=== PATIENT | female | born 1930 | race Caucasian/White ===

== ENCOUNTER 2018-02-27 16:34 | Inpatient (IN) | payer MEDICARE, OTHER ==
[2018-02-27] MEDS ORDERED: SODIUM CHLORIDE 0.9% 500 ML 500 ML IV STA (17:14)
[2018-02-27] MEDS ORDERED: MORPHINE SULFATE 4 MG/ML SYRINGE IVP STA ×2 (17:17→19:39)
[2018-02-27 17:42] LABS: Basophils % (A) 0 %; Eosinophils # (A) 0.1 k/uL (0-0.7); Eosinophils % (A) 0 %; HCT 32.9 % (34.0-46.0); HGB 10.9 gm/dL (11.4-16.0); Lymphocytes # (A) 0.7 k/uL (1.0-4.8); Lymphocytes % (A) 6 %; MCH 29.6 pg (25.0-35.0); MCV 89.9 fL (80.0-100.0); Mean Platelet Volume 6.8; Monocytes # (A) 0.4 k/uL (0-1.0); Monocytes % (A) 4 %; Neutrophils # (A) 11.1 k/uL (1.3-7.7); Neutrophils % (A) 90 %; Platelet Count 388 k/uL (150-450); RBC 3.67 m/uL (3.80-5.40); RDW 14.4 % (11.5-15.5); WBC 12.4 k/uL (3.8-10.6)
[2018-02-27 17:52] LABS: INR 0.9 (<1.2); Partial Thromboplastin Time 30.3 sec (22.0-30.0); Prothrombin Time 9.2 sec (9.0-12.0)
[2018-02-27 17:55] LABS: Albumin 3.9 g/dL (3.5-5.0); Calcium 9.8 mg/dL (8.4-10.2); Magnesium 1.8 mg/dL (1.6-2.3); Potassium 4.1 mmol/L (3.5-5.1); Total Bilirubin 0.4 mg/dL (0.2-1.3); Total Protein 6.8 g/dL (6.3-8.2)
--- NOTE | 2018-02-27 18:09 | ED ---
General Adult HPI - General Chief complaint: Fall Stated complaint: rt leg pain Time Seen by Provider: 02/27/18 16:37 Source: patient, RN notes reviewed, old records reviewed Mode of arrival: EMS Limitations: no limitations - History of Present Illness Initial comments: Patient is a 87-year-old female with multiple complaints, Patient states that she's had increased weakness over the past week, and immobile due to right leg pain. Patient states that she has been sitting in her chair and complains of swelling and redness to the right lower extremity. She reports she has pain within the right hip extending down from the back to the lower leg. Patient states that she also has had increased shortness of breath on exertion and this had difficulty performing her daily activities. Patient states that she also has worsening ascites within her abdomen. She states she does not know 7 with this could be caused from. She has been diagnosed with this bite from her PCP. Patient states that she has had no recent fevers or chills. She reports severe pain with any range of motion of her right ankle. - Related Data Home Medications Medication Instructions Recorded Confirmed Acetaminophen [Tylenol] 650 mg PO Q6H PRN 02/27/18 02/27/18 Ascorbic Acid [Vitamin C] 500 mg PO DAILY 02/27/18 02/27/18 Aspirin EC [Ecotrin Low Dose] 81 mg PO DAILY 02/27/18 02/27/18 Calcium Citrate 250 mg PO DAILY 02/27/18 02/27/18 Docusate [Colace] 100 mg PO DAILY 02/27/18 02/27/18 Felodipine [Felodipine ER] 10 mg PO DAILY 02/27/18 02/27/18 Fenofibrate Nanocrystallized 145 mg PO DAILY 02/27/18 02/27/18 [Fenofibrate] Fish Oil/Dha/Epa [Fish Oil 1,200 1 cap PO DAILY 02/27/18 02/27/18 mg Fish Oil] Indapamide [Lozol] 2.5 mg PO DAILY 02/27/18 02/27/18 Levothyroxine Sodium 100 mcg PO DAILY 02/27/18 02/27/18 Lisinopril [Zestril] 20 mg PO DAILY 02/27/18 02/27/18 Loratadine 10 mg PO DAILY 02/27/18 02/27/18 Metoprolol Tartrate [Lopressor] 200 mg PO Q12H 02/27/18 02/27/18 Vitamin B Complex 1 cap PO DAILY 02/27/18 02/27/18 Vitamin D3(Uknown Dose) 1 tab PO DAILY 02/27/18 02/27/18 hydrALAZINE HCL [Apresoline] 50 mg PO TID 02/27/18 02/27/18 metFORMIN HCL [Glucophage] 500 mg PO AC-SUPPER 02/27/18 02/27/18 rOPINIRole HCL [Requip] 0.25 mg PO HS 02/27/18 02/27/18 Allergies Allergy/AdvReac Type Severity Reaction Status Date / Time aspirin AdvReac Abdominal Verified 02/27/18 16:50 Pain codeine AdvReac Hallucinati Verified 02/27/18 16:50 ons NSAIDS (Non-Steroidal AdvReac Abdominal Verified 02/27/18 16:50 Anti-Inflamma Pain Review of Systems ROS Statement: Those systems with pertinent positive or pertinent negative responses have been documented in the HPI. ROS Other: All systems not noted in ROS Statement are negative. Past Medical History Past Medical History: Diabetes Mellitus, Hypertension, Thyroid Disorder History of Any Multi-Drug Resistant Organisms: None Reported Past Surgical History: Appendectomy, Hysterectomy, Orthopedic Surgery Past Psychological History: No Psychological Hx Reported Smoking Status: Never smoker Past Alcohol Use History: None Reported Past Drug Use History: None Reported General Exam - General Exam Comments Initial Comments: 87-year-old female. Patient appears a week. Limitations: no limitations General appearance: alert, in no apparent distress Head exam: Present: atraumatic, normocephalic, normal inspection Eye exam: Present: normal appearance, PERRL, EOMI. Absent: scleral icterus, conjunctival injection, periorbital swelling ENT exam: Present: normal exam, mucous membranes moist Neck exam: Present: normal inspection. Absent: tenderness, meningismus, lymphadenopathy Respiratory exam: Present: normal lung sounds bilaterally. Absent: respiratory distress, wheezes, rales, rhonchi, stridor Cardiovascular Exam: Present: regular rate, normal rhythm, normal heart sounds. Absent: systolic murmur, diastolic murmur, rubs, gallop, clicks GI/Abdominal exam: Present: distended, normal bowel sounds. Absent: soft, tenderness, guarding, rebound, rigid Extremities exam: Present: normal inspection, full ROM, normal capillary refill. Absent: tenderness, pedal edema, joint swelling, calf tenderness Right Hip exam: Present: tenderness (Patient is tenderness over the greater trochanter. ). Absent: normal inspection Upper Leg exam: Absent: normal inspection (Patient has significant pain with any range of motion of the leg.), full ROM Knee exam: Present: normal inspection Lower Leg exam: Present: full ROM, swelling. Absent: normal inspection, tenderness Ankle exam: Present: normal inspection, full ROM Foot/Toe exam: Present: normal inspection, full ROM (Patient has erythema. ) Neurovascular tendon exam: Present: no vascular compromise Gait: observed and normal Back exam: Present: normal inspection, full ROM Neurological exam: Present: alert, oriented X3, CN II-XII intact Psychiatric exam: Present: normal affect, normal mood Skin exam: Present: warm, dry, intact, normal color. Absent: rash Course Vital Signs 02/27/18 02/27/18 02/27/18 16:35 17:37 19:00 Temperature 98.2 F Pulse Rate 74 86 74 Respiratory 18 18 18 Rate Blood Pressure 190/79 189/76 198/84 O2 Sat by Pulse 94 L 93 L 92 L Oximetry 02/27/18 20:35 Temperature Pulse Rate 85 Respiratory 18 Rate Blood Pressure 187/76 O2 Sat by Pulse 92 L Oximetry Medical Decision Making - Medical Decision Making 87-year-old female multiple complaints and complains of right hip and leg pain. She complains of leg has been worse this week. She has been increasingly debilitated unable to perform ADLs. She's been very little mobility and only sitting in her chair. 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 Patient would not ambulate or do any range of motion of the leg. She did have some slight extremity of the right leg as well. Patient also complains of abdominal distention. We did do a chest x-ray which was negative for any acute process. EKG shows no acute changes aside. Patient's lab work was relatively unremarkable. The abdominal distention and the hip pain, We did proceed with CT for further evaluation. CT does show evidence of chronic bladder outlet obstruction and chronic left-sided hydronephrosis. Also some chronic changes with AVN with the right hip. She has significant distention of her bladder. It does start nurses to proceed with Arreaga catheter. Patient would not ambulate to and from the bathroom to proceed with urinalysis or use a bedpan. At this time with [facility] Patient for further evaluation for the also complaints including the right hip pain with AVN, weakness, inability to perform ADLs, dyspnea, chronic urinary retention. - Lab Data Result diagrams: 02/27/18 17:27 02/27/18 17:27 Lab Results 02/27/18 02/27/18 02/27/18 Range/Units 17:27 17:27 17:27 WBC 12.4 H (3.8-10.6) k/uL RBC 3.67 L (3.80-5.40) m/uL Hgb 10.9 L (11.4-16.0) gm/dL Hct 32.9 L (34.0-46.0) % MCV 89.9 (80.0-100.0) fL MCH 29.6 (25.0-35.0) pg MCHC 33.0 (31.0-37.0) g/dL RDW 14.4 (11.5-15.5) % Plt Count 388 (150-450) k/uL Neutrophils % 90 % Lymphocytes % 6 % Monocytes % 4 % Eosinophils % 0 % Basophils % 0 % Neutrophils # 11.1 H (1.3-7.7) k/uL Lymphocytes # 0.7 L (1.0-4.8) k/uL Monocytes # 0.4 (0-1.0) k/uL Eosinophils # 0.1 (0-0.7) k/uL Basophils # 0.0 (0-0.2) k/uL PT (9.0-12.0) sec INR (<1.2) APTT (22.0-30.0) sec Sodium 131 L (137-145) mmol/L Potassium 4.1 (3.5-5.1) mmol/L Chloride 93 L (98-107) mmol/L Carbon Dioxide 28 (22-30) mmol/L Anion Gap 10 mmol/L BUN 23 H (7-17) mg/dL Creatinine 0.81 (0.52-1.04) mg/dL Est GFR (CKD-EPI)AfAm 77 (>60 ml/min/1.73 sqM) Est GFR (CKD-EPI)NonAf 67 (>60 ml/min/1.73 sqM) Glucose 140 H (74-99) mg/dL Calcium 9.8 (8.4-10.2) mg/dL Magnesium 1.8 (1.6-2.3) mg/dL Total Bilirubin 0.4 (0.2-1.3) mg/dL AST 20 (14-36) U/L ALT 19 (9-52) U/L Alkaline Phosphatase 46 (38-126) U/L Total Creatine Kinase 57 (30-135) U/L CK-MB (CK-2) 1.1 (0.0-2.4) ng/mL CK-MB (CK-2) Rel Index 1.9 Troponin I <0.012 (0.000-0.034) ng/mL Total Protein 6.8 (6.3-8.2) g/dL Albumin 3.9 (3.5-5.0) g/dL 02/27/18 Range/Units 17:27 WBC (3.8-10.6) k/uL RBC (3.80-5.40) m/uL Hgb (11.4-16.0) gm/dL Hct (34.0-46.0) % MCV (80.0-100.0) fL MCH (25.0-35.0) pg MCHC (31.0-37.0) g/dL RDW (11.5-15.5) % Plt Count (150-450) k/uL Neutrophils % % Lymphocytes % % Monocytes % % Eosinophils % % Basophils % % Neutrophils # (1.3-7.7) k/uL Lymphocytes # (1.0-4.8) k/uL Monocytes # (0-1.0) k/uL Eosinophils # (0-0.7) k/uL Basophils # (0-0.2) k/uL PT 9.2 (9.0-12.0) sec INR 0.9 (<1.2) APTT 30.3 H (22.0-30.0) sec Sodium (137-145) mmol/L Potassium (3.5-5.1) mmol/L Chloride (98-107) mmol/L Carbon Dioxide (22-30) mmol/L Anion Gap mmol/L BUN (7-17) mg/dL Creatinine (0.52-1.04) mg/dL Est GFR (CKD-EPI)AfAm (>60 ml/min/1.73 sqM) Est GFR (CKD-EPI)NonAf (>60 ml/min/1.73 sqM) Glucose (74-99) mg/dL Calcium (8.4-10.2) mg/dL Magnesium (1.6-2.3) mg/dL Total Bilirubin (0.2-1.3) mg/dL AST (14-36) U/L ALT (9-52) U/L Alkaline Phosphatase (38-126) U/L Total Creatine Kinase (30-135) U/L CK-MB (CK-2) (0.0-2.4) ng/mL CK-MB (CK-2) Rel Index Troponin I (0.000-0.034) ng/mL Total Protein (6.3-8.2) g/dL Albumin (3.5-5.0) g/dL 02/27/18 18:09 EKG performed at 1731 shows normal sinus rhythm normal ECG. Ventricular rate of 86 bpm. Intervals 178 ms. QRS ration 78 ms. QT QTc is 364/435 ms. 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 No acute fractures seen. Possible lytic lesion in the process of all right femur. Ultrasound was limited as Patient is unable to lay on the right side of her body or bend the right knee for the right popliteal vein assessment 2 to the right leg pain. Rest of vitals or imaging were negative for DVT. Chest x-ray is a for any acute cardiopulmonary disease. There is left-sided hydronephrosis and hydroureter with decreased left renal function. Consistent with chronic obstruction. Large bladder cystocele. Dilated bladder consistent with chronic bladder outlet obstruction. No obstructing calculus noted. Atherosclerotic vascular disease noted. 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 Disposition Clinical Impression: AVN of femur, Inability to perform activities of daily living, Weakness, Chronic retention of urine, Abdominal distension Disposition: ADMITTED IP TO THIS HOSP Condition: Stable Is patient prescribed a controlled substance at d/c from ED?: No Referrals: Ruddy Suh MD [Primary Care Provider] - 1-2 days Time of Disposition: 21:29
[2018-02-27 18:12] LABS: Creatine Kinase 57 U/L (30-135)
[2018-02-27 18:25] LABS: Creatine Kinase MB 1.1 ng/mL (0.0-2.4); Troponin I <0.012 ng/mL (0.000-0.034)
--- NOTE | 2018-02-27 18:46 | US ---
EXAMINATION TYPE: US venous doppler duplex LE RT DATE OF EXAM: 02/27/2018 6:20 PM COMPARISON: NONE CLINICAL HISTORY: Pain. Bilateral lower leg skin redness with lower right leg swelling and entire rig ht leg pain x couple weeks; arthritis per patient SIDE PERFORMED: Right TECHNIQUE: The lower extremity deep venous system is examined utilizing real time linear array sonog judith with graded compression, Doppler sonography and color-flow sonography. VESSELS IMAGED: Common Femoral Vein Deep Femoral Vein Greater Saphenous Vein * Femoral Vein PTV Distally US exam is technically limited as patient is unable to lay on right body side or bend right knee for Right Popliteal Vein assessment due to severe right leg pain. US technologist attempted to bend knee and patient refused full maneuver. Right Leg: Negative for DVT IMPRESSION: Negative exam. No evidence of deep venous thrombosis in the right leg.
--- NOTE | 2018-02-27 19:01 | XR ---
EXAMINATION TYPE: XR chest 2V DATE OF EXAM: 02/27/2018 COMPARISON: NONE HISTORY: Difficulty breathing TECHNIQUE: Frontal and lateral views of the chest are obtained. FINDINGS: There is no heart failure nor confluent pneumonic infiltrate. Heart appears slightly enlar ged. Costophrenic angles are clear. Bony thorax appears intact. IMPRESSION: No active cardiopulmonary disease.
--- NOTE | 2018-02-27 19:03 | XR ---
EXAMINATION TYPE: XR Hip RT and AP Pelvis DATE OF EXAM: 02/27/2018 COMPARISON: NONE HISTORY: Chronic hip pain TECHNIQUE: A single AP view of the pelvis is obtained. Two views of the right hip are obtained. FINDINGS: Pelvic ring is intact. There is severe narrowing of the right hip joint space with some fla ttening of the articular surface. Left proximal small femur and hip joint are intact. Sacroiliac join ts appear intact. I see no acute fracture. There is possible 2 cm lytic area in the proximal shaft of the right femur. 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 No acute fracture seen. Possible lytic lesion in the proximal right femur.
[2018-02-27] MEDS ORDERED: LABETALOL 5 MG/ML VIAL MDV IVP STA (19:39)
--- NOTE | 2018-02-27 21:01 | CT ---
EXAMINATION TYPE: CT abdomen pelvis w con DATE OF EXAM: 02/27/2018 COMPARISON: None HISTORY: Right sided hip pain and abdominal distention. CT DLP: 1106.6 mGycm Automated exposure control for dose reduction was used. TECHNIQUE: Helical acquisition of images was performed from the lung bases through the pelvis. CONTRAST: Performed without Oral Contrast and with IV Contrast, patient injected with 100ml mL of Isovue 300. FINDINGS: There is some patchy linear density at the lung bases. There is no pleural effusion. Heart is enlarged. Liver spleen appear normal. Bile ducts are not dilated. There is no evidence of pa ncreatic mass. Stomach appears normal. There is no adrenal mass. Kidneys have normal size. There is large left renal pelvis. There is left-s ided hydroureter. I see no ureteral calculus. There is decreased contrast excretion in the left renal collecting system compared to the right. There is no retroperitoneal adenopathy. There is no mesenteric adenopathy or edema. There is enlargement of the urinary bladder with cystocel e. Bladder measures 21 cm in length. There is 6 cm dissent of the floor of the urinary bladder. I see no intestinal wall thickening. There are no dilated loops. There is no evidence of a bowel obst ruction. Appendix appears normal. There is no ascites. There is no sign of free air. There is no ingu inal hernia. There is small umbilical hernia that contains fat. Lumbar spine appears intact. I see no bony destructive process. There is advanced osteoarthritis in the right hip joint with features of c hronic avascular necrosis of the right femoral head and extensive subchondral cystic change on both s ides of the right hip joint. IMPRESSION: THERE IS LEFT-SIDED HYDRONEPHROSIS AND HYDROURETER WITH DECREASED LEFT RENAL FUNCTION. THIS IS CONSIS TENT WITH CHRONIC OBSTRUCTION. THERE IS LARGE BLADDER CYSTOCELE. DILATED BLADDER CONSISTENT WITH EDGE BONDER BREE BLADDER OUTLET OBSTRUCTION. NO OBSTRUCTING CALCULUS SEEN. ATHEROSCLEROTIC VASCULAR DISEASE. Bony changes involving right hip as above.
[2018-02-27] MEDS ORDERED: IBUPROFEN 400 MG TAB PO PRN (21:29)
[2018-02-27] MEDS ORDERED: NALOXONE 0.4 MG/ML 1 ML VIAL IV PRN (21:29)
[2018-02-27] MEDS ORDERED: ONDANSETRON 4 MG/2 ML VIAL IVP PRN (21:29)
[2018-02-27] MEDS ORDERED: Acetaminophen-Codeine 300-30mg TAB PO PRN (21:29)
[2018-02-27] MEDS: SODIUM CHLORIDE 0.9% 1,000 ML IV SCH (21:40)
[2018-02-27 22:18] LABS: Appearance,Urine Cloudy (Clear); Bilirubin,Urine Negative (Negative); Blood,Urine Negative (Negative); Budding Yeast,Urine Few /hpf; Color,Urine Yellow; Glucose,Urine (UA) Negative (Negative); Ketones,Urine Negative (Negative); Leukocyte Esterase,Urine Negative (Negative); Mucus,Urine Rare /hpf; Nitrite,Urine Negative (Negative); PH, Urine 5.5 (5.0-8.0); Protein,Urine Trace (Negative); RBC,Urine 2 /hpf (0-5); Specific Gravity,Urine 1.014 (1.001-1.035)
[2018-02-28 00:58] VITALS: BMI 29.9
[2018-02-28] MEDS: hydrALAZINE HCL 50 MG TAB PO SCH ×4 (01:45→20:59)
[2018-02-28] MEDS: MORPHINE SULFATE 4 MG/ML SYRINGE IV PRN ×2 (01:46→08:39)
[2018-02-28] MEDS: ENALAPRILAT 1.25 MG/ML 1 ML VIAL IVP PRN (03:08)
[2018-02-28 08:24] LABS: Glucose,Whole Blood 164 mg/dL (75-99)
[2018-02-28] MEDS: SODIUM CHLORIDE 0.9% 1,000 ML IV SCH ×2 (08:27→16:26)
[2018-02-28] MEDS: PANTOPRAZOLE 40 MG/10 ML VIAL IV SCH (08:39)
--- NOTE | 2018-02-28 09:39 | P.CNOR ---
History of Present Illness - [facility] Consult date: 02/28/18 Consult reason: joint pain History of present illness: Patient is an 87-year-old female who was admitted to [facility] yesterday with multiple medical comorbidities. Patient was first complaining of significant right hip and leg pain. She also complains of weakness and inability to ambulate. Upon arrival to the emergency room at [facility], imaging and lab tests were done. Labs demonstrated issues with her kidneys, further testing demonstrated a hydronephrosis and a large ascites. X-rays also demonstrated significant arthritis/AVN of the left hip. Patient was admitted under internal medicine, orthopedic team was consulted. Patient was evaluated today at bedside, she's resting comfortably. Patient is a very poor historian with how long that her hip symptoms have been present. She does deny any recent trauma, this including falls. She does live alone, she states that she has family around to help her. She states the hip is bothering her for years. She's had no orthopedic surgical intervention. She denies any other extremity problems, this including left lower and bilateral upper extremities. She denies any new onset cervical, thoracic or lumbar pain. She admits to discomfort in the right hip region with movement. She states that she does use a walker with ambulation. She states that she does have days where the hip really bothers her, and other days where it's not as bad. She states over the last week the pain is worsened. Review of Systems Constitutional: Reports as per [facility] Past Medical History Past Medical History: Diabetes Mellitus, Hypertension, Thyroid Disorder History of Any Multi-Drug Resistant Organisms: None Reported Past Surgical History: Appendectomy, Hysterectomy, Orthopedic Surgery Past Psychological History: No Psychological Hx Reported Smoking Status: Never smoker Past Alcohol Use History: None Reported Past Drug Use History: None Reported - Past Family History Mother Additional Family Medical History / Comment(s): at 34 of unknown heart problems Father Additional Family Medical History / Comment(s): at 85 of heart disease, history of strokes Medications and Allergies Home Medications Medication Instructions Recorded Confirmed Type Acetaminophen [Tylenol] 650 mg PO Q6H PRN 02/27/18 02/27/18 History Ascorbic Acid [Vitamin C] 500 mg PO DAILY 02/27/18 02/27/18 History Aspirin EC [Ecotrin Low Dose] 81 mg PO DAILY 02/27/18 02/27/18 History Calcium Citrate 250 mg PO DAILY 02/27/18 02/27/18 History Docusate [Colace] 100 mg PO DAILY 02/27/18 02/27/18 History Felodipine [Felodipine ER] 10 mg PO DAILY 02/27/18 02/27/18 History Fenofibrate Nanocrystallized 145 mg PO DAILY 02/27/18 02/27/18 History [Fenofibrate] Fish Oil/Dha/Epa [Fish Oil 1,200 1 cap PO DAILY 02/27/18 02/27/18 History mg Fish Oil] Indapamide [Lozol] 2.5 mg PO DAILY 02/27/18 02/27/18 History Levothyroxine Sodium 100 mcg PO DAILY 02/27/18 02/27/18 History Lisinopril [Zestril] 20 mg PO DAILY 02/27/18 02/27/18 History Loratadine 10 mg PO DAILY 02/27/18 02/27/18 History Metoprolol Tartrate [Lopressor] 200 mg PO Q12H 02/27/18 02/27/18 History Vitamin B Complex 1 cap PO DAILY 02/27/18 02/27/18 History Vitamin D3(Uknown Dose) 1 tab PO DAILY 02/27/18 02/27/18 History hydrALAZINE HCL [Apresoline] 50 mg PO TID 02/27/18 02/27/18 History metFORMIN HCL [Glucophage] 500 mg PO AC-SUPPER 02/27/18 02/27/18 History rOPINIRole HCL [Requip] 0.25 mg PO HS 02/27/18 02/27/18 History Allergies Allergy/AdvReac Type Severity Reaction Status Date / Time aspirin AdvReac Abdominal Verified 02/27/18 16:50 Pain codeine AdvReac Hallucinati Verified 02/27/18 16:50 ons NSAIDS (Non-Steroidal AdvReac Abdominal Verified 02/27/18 16:50 Anti-Inflamma Pain Physical Examination Right lower extremity: No obvious open lesions or sores present throughout the extremity No significant areas of ecchymosis or soft tissue swelling Patient is unable to straight leg raise at this time, there is pain in the groin and right hip region with logroll maneuver She is nontender with palpation surrounding the knee, no obvious effusion appreciated Plantar flexion, dorsiflexion, EHL, FHL are intact Sensation to light touch that extremity is intact, dorsal pedis pulses 2+ Results - Labs Labs: Abnormal Lab Results - Last 24 Hours (Table) 02/27/18 02/27/18 02/27/18 Range/Units 17:27 17:27 17:27 WBC 12.4 H (3.8-10.6) k/uL RBC 3.67 L (3.80-5.40) m/uL Hgb 10.9 L (11.4-16.0) gm/dL Hct 32.9 L (34.0-46.0) % Neutrophils # 11.1 H (1.3-7.7) k/uL Lymphocytes # 0.7 L (1.0-4.8) k/uL APTT 30.3 H (22.0-30.0) sec Sodium 131 L (137-145) mmol/L Chloride 93 L (98-107) mmol/L BUN 23 H (7-17) mg/dL Glucose 140 H (74-99) mg/dL POC Glucose (mg/dL) (75-99) mg/dL Urine Appearance (Clear) Urine Protein (Negative) Urine Mucus (None) /hpf Urine Yeast (Budding) (None) /hpf 02/27/18 02/28/18 Range/Units 21:57 08:22 WBC (3.8-10.6) k/uL RBC (3.80-5.40) m/uL Hgb (11.4-16.0) gm/dL Hct (34.0-46.0) % Neutrophils # (1.3-7.7) k/uL Lymphocytes # (1.0-4.8) k/uL APTT (22.0-30.0) sec Sodium (137-145) mmol/L Chloride (98-107) mmol/L BUN (7-17) mg/dL Glucose (74-99) mg/dL POC Glucose (mg/dL) 164 H (75-99) mg/dL Urine Appearance Cloudy H (Clear) Urine Protein Trace H (Negative) Urine Mucus Rare H (None) /hpf Urine Yeast (Budding) Few H (None) /hpf H & H 02/27/18 Range/Units 17:27 Hgb 10.9 L (11.4-16.0) gm/dL Hct 32.9 L (34.0-46.0) % Coagulation 02/27/18 Range/Units 17: INR 0.9 (<1.2) Result Diagrams: 02/27/18 17:27 02/27/18 17:27 - Diagnostic results Hip x-ray: report reviewed, image reviewed Assessment and Plan Plan: Imaging: X-rays of the right hip and AP pelvis were obtained. Images demonstrate severe arthritis of the right hip. There is evidence of avascular necrosis of the right femoral head. Assessment: 1. Right hip osteoarthritis 2. Right femoral head avascular necrosis 3. Multiple medical comorbidities Plan: I was able to discuss the case, including the physical exam findings and imaging studies with Dr. Mims. At this point, no acute surgical intervention. There are no fractures that I'm able to visualize. Due to the port patient's multiple medical comorbidities, she is a very poor candidate for surgery at this time. When discussing the current condition with the patient, describing that she will be in constant pain without surgical intervention, she is reluctant to have any surgery. Pain control, a utilize oral medication, IV pain medication for breakthrough GI and DVT prophylaxis per medical recommendations Other medical typist recommendations for multiple medical comorbidities Further recommendations to follow Time with Patient: Less than 30
[2018-02-28 11:53] LABS: Glucose,Whole Blood 167 mg/dL (75-99)
[2018-02-28] MEDS: METOPROLOL TARTRATE 50 MG TAB PO SCH ×2 (13:39→20:58)
--- NOTE | 2018-02-28 15:28 | P.CONS ---
History of Present Illness - Reason for Consult Consult date: 02/28/18 suspicious silvana lesion Requesting physician: Kota Little - Chief Complaint right leg and side pain - History of Present Illness Mrs. Sofia is a very pleasant 87 year old female who has had progressive right hip pain ovr the last year. The month though is has been so severe that it is impacting her ADLs. Pt denies any other notable physical changes, she denies a personal history of malignancy, no recent illnesses, injuries, falls, appetite is fair, no nausea, vomiting, cough, changes in bowel or bladder habits. She has had mammograms, denies colonoscopy or EGD-and does not want those tests. She is in good overall health other then her leg. Review of Systems 14 point ROS as stated in HPI Past Medical History Past Medical History: Diabetes Mellitus, Hypertension, Thyroid Disorder History of Any Multi-Drug Resistant Organisms: None Reported Past Surgical History: Appendectomy, Hysterectomy, Orthopedic Surgery Past Psychological History: No Psychological Hx Reported Smoking Status: Never smoker Past Alcohol Use History: None Reported Past Drug Use History: None Reported - Past Family History Mother Additional Family Medical History / Comment(s): at 34 of unknown heart problems Father Additional Family Medical History / Comment(s): at 85 of heart disease, history of strokes Medications and Allergies Home Medications Medication Instructions Recorded Confirmed Type Acetaminophen [Tylenol] 650 mg PO Q6H PRN 02/27/18 02/27/18 History Ascorbic Acid [Vitamin C] 500 mg PO DAILY 02/27/18 02/27/18 History Aspirin EC [Ecotrin Low Dose] 81 mg PO DAILY 02/27/18 02/27/18 History Calcium Citrate 250 mg PO DAILY 02/27/18 02/27/18 History Docusate [Colace] 100 mg PO DAILY 02/27/18 02/27/18 History Felodipine [Felodipine ER] 10 mg PO DAILY 02/27/18 02/27/18 History Fenofibrate Nanocrystallized 145 mg PO DAILY 02/27/18 02/27/18 History [Fenofibrate] Fish Oil/Dha/Epa [Fish Oil 1,200 1 cap PO DAILY 02/27/18 02/27/18 History mg Fish Oil] Indapamide [Lozol] 2.5 mg PO DAILY 02/27/18 02/27/18 History Levothyroxine Sodium 100 mcg PO DAILY 02/27/18 02/27/18 History Lisinopril [Zestril] 20 mg PO DAILY 02/27/18 02/27/18 History Loratadine 10 mg PO DAILY 02/27/18 02/27/18 History Metoprolol Tartrate [Lopressor] 200 mg PO Q12H 02/27/18 02/27/18 History Vitamin B Complex 1 cap PO DAILY 02/27/18 02/27/18 History Vitamin D3(Uknown Dose) 1 tab PO DAILY 02/27/18 02/27/18 History hydrALAZINE HCL [Apresoline] 50 mg PO TID 02/27/18 02/27/18 History metFORMIN HCL [Glucophage] 500 mg PO AC-SUPPER 02/27/18 02/27/18 History rOPINIRole HCL [Requip] 0.25 mg PO HS 02/27/18 02/27/18 History Allergies Allergy/AdvReac Type Severity Reaction Status Date / Time aspirin AdvReac Abdominal Verified 02/27/18 16:50 Pain codeine AdvReac Hallucinati Verified 02/27/18 16:50 ons NSAIDS (Non-Steroidal AdvReac Abdominal Verified 02/27/18 16:50 Anti-Inflamma Pain Physical Exam Vitals: Vital Signs Temp Pulse Pulse Resp BP BP Pulse Ox 02/28/18 14:50 98.8 F 73 15 177/72 93 L 02/28/18 13:40 169/65 02/28/18 10:24 83 175/62 02/28/18 08:35 97.4 F L 85 16 182/69 96 02/28/18 05:24 99.0 F 72 16 171/63 97 02/28/18 04:22 99.3 F 87 16 177/64 97 02/28/18 02:59 99.5 F 92 16 173/69 92 L 02/28/18 00:29 99.3 F 88 14 179/69 93 L 02/27/18 23:28 99.3 F 84 20 168/72 92 L 02/27/18 22:42 83 18 173/72 02/27/18 22:00 100.2 F H 02/27/18 20:35 85 18 187/76 92 L 02/27/18 19:00 74 18 198/84 92 L 02/27/18 17:37 86 18 189/76 93 L 02/27/18 16:35 98.2 F 74 18 190/79 94 L Intake and Output 02/28/18 02/28/18 02/28/18 06:59 14:59 22:59 Intake Total 480 120 Output Total 1500 1900 Balance -1020 -1780 Intake: Oral 480 120 Output: Urine 1500 1900 Other: Weight 69.4 kg - Constitutional General appearance: cooperative, no acute distress, obese - EENT Eyes: anicteric sclerae, EOMI, PERRLA, normal appearance ENT: hearing grossly normal, normal oropharynx - Neck Neck: no lymphadenopathy - Respiratory Respiratory: bilateral: CTA - Cardiovascular Rhythm: regular Heart sounds: normal: S1, S2 Abnormal Heart Sounds: no systolic murmur, no diastolic murmur, no rub, no S3 Gallop, no S4 Gallop, no click, no other leg Peripheral Edema: right: 2+ (tender, warm), left: Trace - Gastrointestinal firmness in the RLQ, not a definable mass General gastrointestinal: no absent bowel sounds, no decreased bowel sounds, no distended, no hepatomegaly, no hyperactive bowel sounds, normal bowel sounds, no organomegaly, no rigid, no scaphoid, soft, no splenomegaly, no tenderness, no umbilical hernia, no ventral hernia - Integumentary Integumentary: pale - Neurologic Neurologic: CNII-XII intact - Musculoskeletal right leg weak due to pain Musculoskeletal: strength equal bilaterally - Psychiatric Psychiatric: A&O x's 3, appropriate affect, intact judgment & insight Results CBC & Chem 7: 02/27/18 17:27 02/27/18 17:27 Labs: Abnormal Lab Results - Last 24 Hours (Table) 02/27/18 02/27/18 02/27/18 Range/Units 17:27 17:27 17:27 WBC 12.4 H (3.8-10.6) k/uL RBC 3.67 L (3.80-5.40) m/uL Hgb 10.9 L (11.4-16.0) gm/dL Hct 32.9 L (34.0-46.0) % Neutrophils # 11.1 H (1.3-7.7) k/uL Lymphocytes # 0.7 L (1.0-4.8) k/uL APTT 30.3 H (22.0-30.0) sec Sodium 131 L (137-145) mmol/L Chloride 93 L (98-107) mmol/L BUN 23 H (7-17) mg/dL Glucose 140 H (74-99) mg/dL POC Glucose (mg/dL) (75-99) mg/dL Urine Appearance (Clear) Urine Protein (Negative) Urine Mucus (None) /hpf Urine Yeast (Budding) (None) /hpf 02/27/18 02/28/18 02/28/18 Range/Units 21:57 08:22 11:51 WBC (3.8-10.6) k/uL RBC (3.80-5.40) m/uL Hgb (11.4-16.0) gm/dL Hct (34.0-46.0) % Neutrophils # (1.3-7.7) k/uL Lymphocytes # (1.0-4.8) k/uL APTT (22.0-30.0) sec Sodium (137-145) mmol/L Chloride (98-107) mmol/L BUN (7-17) mg/dL Glucose (74-99) mg/dL POC Glucose (mg/dL) 164 H 167 H (75-99) mg/dL Urine Appearance Cloudy H (Clear) Urine Protein Trace H (Negative) Urine Mucus Rare H (None) /hpf Urine Yeast (Budding) Few H (None) /hpf Comments: hip/pelvis xray report reviewed CT scan - abdomen: report reviewed CT scan - pelvis: report reviewed Venous US: report reviewed Assessment and Plan (1) Lytic bone lesion of right femur Narrative/Plan: Case discussed briefly with Orthopedics. MRI has been ordered for further evaluation of the right femur. Will await those results and plan of care per Orthopedics. CT AP report reviewed, no suspicious masses or adenopathy reported. Labs reviewed with no significant abnormalities. We will follow up with pt work up. Current Visit: Yes Status: Acute Priority: High Code(s): M89.9 - DISORDER OF BONE, UNSPECIFIED SNOMED Code(s): 45316090
[2018-02-28 16:57] LABS: Glucose,Whole Blood 157 mg/dL (75-99)
[2018-02-28] MEDS ORDERED: metFORMIN 500 MG TAB PO SCH (17:30)
[2018-02-28] MEDS: INSULIN ASPART 100 UNIT/ML 1 ML 10 ML VIAL SQ SCH ×2 (18:12→20:58)
--- NOTE | 2018-02-28 18:59 | HP ---
HISTORY AND PHYSICAL CHIEF COMPLAINT: Weakness, right hip pain. HISTORY OF PRESENT ILLNESS: This 87-year-old woman with a past medical history of multiple medical problems including history of diabetes, hypertension, hypothyroidism, appendectomy, being for DrMireya in the outpatient setting, was noted to have generalized weakness and tiredness. Patient apparently complains of right hip pain also. The patient had been unable to ambulate also. 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 Orthopedics has see and evaluated. Patient also had suspicious lytic lesion on the right femur also, MRI has been ordered. Currently the patient is stuporous and unable to give history. Most of the history is taken from my discussion with the staff and review of of the chart. PAST MEDICAL HISTORY: Diabetes, hypertension, hypothyroid, appendectomy, hysterectomy. MEDICATIONS: Prior to admission include, home medications are: 1. Requip 0.25 mg at bedtime. 2. Glucophage 500 mg with supper. 3. Apresoline 50 mg t.i.d. 4. Vitamin D3 one tablet p.o. daily. 5. Lopressor 200 mg p.o. b.i.d. 6. Loratadine 10 mg. 7. Zestril 20 mg p.o. daily. 8. Levothyroxine 100 mcg p.o. daily. 9. Lozol 2.5 mg daily. 10.Fish oil 1 p.o. daily. 11.Fenofibrate 145 mg daily. 12.Felodipine ER 10 mg p.o. daily. 13.Colace 100 mg p.o. daily. 14.Calcium is 250 mg p.o. daily. 15.Ecotrin 81 mg. 16.Vitamin C 500 mg p.o. daily. 17.Tylenol 650 every 6 h p.r.n. ALLERGIES: ASPIRIN including NSAIDs. FAMILY HISTORY: History of heart problems in the family. SOCIAL HISTORY: No history of smoking. No history of alcohol intake. REVIEW OF SYSTEMS: Could not be taken because of the change in mental status. PHYSICAL EXAM: The patient is stuporous. Pulse 73, blood pressure 140/72, respirations 15, temperature 98.8, pulse ox 98% on 2 L. HEENT: Conjunctivae normal. Oral mucosa moist. NECK: No jugular venous distention. No lymph node enlargement. CARDIOVASCULAR: S1 and S2 muffled. LUNGS: Breath sounds diminished in the bases. A few scattered rhonchi and crackles. ABDOMEN: Soft, nontender. No mass palpable. LEGS: Movement of the right leg is painful. NERVOUS SYSTEM: Higher functions as mentioned earlier. Mild diffuse weakness. LYMPHATICS: No lymph nodes palpable in the neck, axillae or groin. SKIN: No rashes. LAB STUDIES: WBC 12, hemoglobin 10.9, sodium 131. UA noted. The abdominal and pelvis CT scan showed left-sided hydronephrosis, hydroureter, decreased left renal function, large bladder cystocele. Other labs noted. ASSESSMENT: 1. 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 2. Right femur lytic lesions. 3. Gait dysfunction. 4. Left-sided hydronephrosis, hydroureter, with chronic obstruction with possibly large bladder cystocele. 5. Diabetes mellitus type 2. 6. Hypertension. 7. Hypothyroidism. 8. Dementia. 9. Appendectomy. 10.Hysterectomy. 11.Increased WBC. 12.Hyponatremia. 13.NO CODE, NO CPR, NO VENT. RECOMMENDATIONS: In this 87-year-old woman who presented with multiple medical issues, we will monitor the patient closely, continue the current management, symptomatic treatment and home medications. Orthopedic Surgery has seen the patient. I would also recommend Urology evaluation also. Prognosis guarded because of multiple complex medical issues. Further recommendations to follow. See orders for further details. DVT prophylaxis. Total time taken is greater than 35 minutes. JEFFERY / MAYITON: [id number] / MTDD
[2018-02-28 20:31] LABS: Glucose,Whole Blood 164 mg/dL (75-99)
[2018-02-28] MEDS: HEPARIN SODIUM,PORCINE 5,000 UNIT/ML 1 ML VIAL SQ SCH (20:57)
[2018-03-01] MEDS: ENALAPRILAT 1.25 MG/ML 1 ML VIAL IVP PRN (01:56)
[2018-03-01] MEDS: MORPHINE SULFATE 4 MG/ML SYRINGE IV PRN ×2 (02:13→15:46)
[2018-03-01] MEDS: SODIUM CHLORIDE 0.9% 1,000 ML IV SCH ×2 (03:59→17:39)
[2018-03-01] MEDS: LEVOTHYROXINE 100 MCG TAB PO SCH (05:31)
[2018-03-01] MEDS: amLODIPine 10 MG TAB PO SCH (05:56)
[2018-03-01 07:31] LABS: Glucose,Whole Blood 115 mg/dL (75-99)
[2018-03-01] MEDS: INSULIN ASPART 100 UNIT/ML 1 ML 10 ML VIAL SQ SCH ×4 (07:41→22:11)
[2018-03-01 07:56] LABS: Basophils % (A) 0 %; Eosinophils # (A) 0.1 k/uL (0-0.7); Eosinophils % (A) 1 %; HCT 31.9 % (34.0-46.0); HGB 9.9 gm/dL (11.4-16.0); Lymphocytes # (A) 0.8 k/uL (1.0-4.8); Lymphocytes % (A) 11 %; MCH 28.4 pg (25.0-35.0); MCHC 30.9 g/dL (31.0-37.0); MCV 91.7 fL (80.0-100.0); Mean Platelet Volume 6.9; Monocytes # (A) 0.4 k/uL (0-1.0); Monocytes % (A) 6 %; Neutrophils # (A) 5.5 k/uL (1.3-7.7); Neutrophils % (A) 80 %; Platelet Count 382 k/uL (150-450); RBC 3.48 m/uL (3.80-5.40); RDW 14.2 % (11.5-15.5); WBC 6.8 k/uL (3.8-10.6)
[2018-03-01] MEDS ORDERED: LORazepam 2 MG/ML INJ IV ONE ×2 (08:00→09:00)
[2018-03-01 08:09] LABS: Anion Gap 10 mmol/L; Blood Urea Nitrogen 13 mg/dL (7-17); Calcium 8.6 mg/dL (8.4-10.2); Carbon Dioxide 25 mmol/L (22-30); Chloride 98 mmol/L (98-107); Glucose 101 mg/dL (74-99); Potassium 3.5 mmol/L (3.5-5.1); Sodium 133 mmol/L (137-145)
[2018-03-01] MEDS ORDERED: NON-FORMULARY DRUG (Fish Oil/Dha/Epa [Fish Oil 1,200 Mg Fish Oil] 1 CAP) PO SCH (09:00)
[2018-03-01] MEDS ORDERED: NON-FORMULARY DRUG (Vitamin B Complex [Vitamin B Complex] 1 CAP) PO SCH (09:00)
[2018-03-01] MEDS: METOPROLOL TARTRATE 50 MG TAB PO SCH ×2 (09:05→22:10)
[2018-03-01] MEDS: FENOFIBRATE 160 MG TAB PO SCH (09:06)
[2018-03-01] MEDS: HEPARIN SODIUM,PORCINE 5,000 UNIT/ML 1 ML VIAL SQ SCH ×2 (09:06→22:10)
[2018-03-01] MEDS: CALCIUM CARBONATE 500 MG CHEWABLE PO SCH ×2 (09:06→10:40)
[2018-03-01] MEDS: LORATADINE 10 MG TAB PO SCH (09:06)
[2018-03-01] MEDS: hydrALAZINE HCL 50 MG TAB PO SCH ×3 (09:06→22:11)
[2018-03-01] MEDS: PANTOPRAZOLE 40 MG/10 ML VIAL IV SCH (09:06)
[2018-03-01] MEDS: LISINOPRIL 20 MG TAB PO SCH (09:06)
[2018-03-01] MEDS: DOCUSATE 100 MG CAP PO SCH (09:06)
[2018-03-01] MEDS: CHOLECALCIFEROL 400 UNIT TAB PO SCH (09:08)
[2018-03-01 12:15] LABS: Glucose,Whole Blood 125 mg/dL (75-99)
--- NOTE | 2018-03-01 12:37 | P.PN ---
Progress Note - Text Progress Note Date: 03/01/18 Patient was unable to undergo MRI of the right hip. Patient has stated that she does not want any surgery involving the right hip. At this time it is indeterminate whether or not there are metastatic lesions involving the right femur. On orthopedic standpoint, if the MRI did demonstrate metastatic lesions in the bone, we would consider prophylactic nailing for stabilization. At this time, no orthopedic surgical intervention indicated. We'll be available for any further questions regarding this patient.
[2018-03-01] MEDS ORDERED: cloNIDine HCL 0.1 MG TAB PO PRN (14:35)
--- NOTE | 2018-03-01 15:12 | PN ---
PROGRESS NOTE DATE OF SERVICE: 03/01/2018 This is an 87-year-old woman admitted with right hip pain and possible avascular necrosis, also left hydronephrosis. The patient also had enlarged bladder cystocele. The patient will be closely monitored at this time. The Hematology Oncology also following the patient closely. MRI is pending at this time. The patient unable to do MRI today because of discomfort. REVIEW OF SYSTEMS: CARDIOVASCULAR: No angina. RESPIRATORY: As mentioned earlier. GI: As mentioned earlier. : No dysuria or retention. PHYSICAL EXAM: Alert and oriented x2. Pulse 71, blood pressure 101/71, respiration 16, temperature 98.2, pulse ox 97% on 2 L. HEENT: Conjunctivae normal. Oral mucosa moist. Neck is no jugular venous distention. No lymph node enlargement. CARDIOVASCULAR SYSTEM: S1, S2. No angina. RESPIRATION: Breath sounds diminished at the bases, no rhonchi, no crackles. Abdomen is soft, nontender. LEGS: No edema, no swelling. NERVOUS SYSTEM: No focal deficits. ASSESSMENT: 1. 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 2. Right femoral lytic lesion. 3. Gait dysfunction. 4. Left-sided hydronephrosis, hydroureter with chronic obstruction with possible larger bladder cystocele. 5. Diabetes mellitus type 2. 6. Hypertension. 7. Hypothyroidism. 8. Dementia. 9. Appendectomy. 10.Hysterectomy. 11.Increased WBC. 12.Hyponatremia. 13.NO CODE, NO CARDIOPULMONARY RESUSCITATION, NO VENTILATOR. RECOMMENDATION: Recommend to continue current management and symptomatic treatment. Otherwise, at this time I would recommend closely monitor. Discussed with the family. I would continue with the current conservative line of management. Will try MRI one more time and follow closely with Hematology/Oncology. I would also recommend clonidine on around the clock basis and p.r.n. also. DVT prophylaxis. Prognosis guarded because of multiple complex medical issues and further recommendations to follow. MMODL / IJN: [id number] /
[2018-03-01] MEDS: INDAPAMIDE 2.5 MG TAB PO SCH (15:46)
[2018-03-01] MEDS: cloNIDine HCL 0.1 MG TAB PO SCH ×2 (15:47→22:11)
[2018-03-01 17:07] LABS: Glucose,Whole Blood 115 mg/dL (75-99)
[2018-03-01 17:39] LABS: Glucose,Whole Blood 114 mg/dL (75-99)
[2018-03-01 20:24] LABS: Glucose,Whole Blood 145 mg/dL (75-99)
[2018-03-02] MEDS: SODIUM CHLORIDE 0.9% 1,000 ML IV SCH ×3 (00:37→22:23)
[2018-03-02] MEDS: LEVOTHYROXINE 100 MCG TAB PO SCH (05:42)
[2018-03-02 07:03] LABS: Glucose,Whole Blood 127 mg/dL (75-99)
[2018-03-02 07:16] LABS: Basophils % (A) 0 %; Eosinophils # (A) 0.1 k/uL (0-0.7); Eosinophils % (A) 1 %; HCT 26.7 % (34.0-46.0); HGB 8.8 gm/dL (11.4-16.0); Lymphocytes # (A) 0.6 k/uL (1.0-4.8); Lymphocytes % (A) 10 %; MCH 29.2 pg (25.0-35.0); MCV 88.7 fL (80.0-100.0); Mean Platelet Volume 6.8; Monocytes # (A) 0.4 k/uL (0-1.0); Monocytes % (A) 7 %; Neutrophils # (A) 4.6 k/uL (1.3-7.7); Neutrophils % (A) 79 %; Platelet Count 376 k/uL (150-450); RBC 3.01 m/uL (3.80-5.40); RDW 13.9 % (11.5-15.5); WBC 5.7 k/uL (3.8-10.6)
[2018-03-02 07:25] LABS: Anion Gap 10 mmol/L; Blood Urea Nitrogen 13 mg/dL (7-17); Calcium 8.5 mg/dL (8.4-10.2); Carbon Dioxide 24 mmol/L (22-30); Chloride 98 mmol/L (98-107); Glucose 108 mg/dL (74-99); Potassium 3.1 mmol/L (3.5-5.1); Sodium 132 mmol/L (137-145)
--- NOTE | 2018-03-02 09:50 | P.PN ---
Subjective Progress Note Date: 03/02/18 The pt continues to c/o rt hip pain. She states it is controlled with meds, at rest. She cannot bear weight on it. She denied any urinary or bowel complaints. No fever or chills. Objective - Vital Signs Vital signs: Vital Signs Temp 97.8 F 03/02/18 08:04 Pulse 76 03/02/18 08:04 Resp 16 03/02/18 08:04 BP 177/68 03/02/18 08:04 Pulse Ox 94 L 03/02/18 08:04 Intake & Output 03/01/18 03/02/18 03/02/18 18:59 06:59 18:59 Intake Total 1100 800 Output Total 700 1025 Balance 400 -225 Intake: Intake, IV Titration 1100 800 Amount Sodium Chloride 0.9% 1, 1100 800 000 ml @ 100 mls/hr IV . Q10H [facility] Rx#:[id number] Output: Urine 700 1025 Uretheral (Arreaga) 700 Other: Voiding Method Indwelling Catheter Indwelling Catheter - Constitutional General appearance: Present: no acute distress - EENT Eyes: Present: EOMI ENT: Present: hearing grossly normal, normal oropharynx - Respiratory Respiratory: bilateral: CTA - Cardiovascular Rhythm: regular Heart sounds: normal: S1, S2 - Gastrointestinal General gastrointestinal: Present: normal bowel sounds, soft - Musculoskeletal Musculoskeletal: Present: right sided weakness - Psychiatric Psychiatric: Present: A&O x's 3, appropriate affect - Labs CBC & Chem 7: 03/02/18 06:38 03/02/18 06:38 Labs: Abnormal Lab Results - Last 24 Hours (Table) 03/01/18 03/01/18 03/01/18 Range/Units 12:13 17:04 17:37 RBC (3.80-5.40) m/uL Hgb (11.4-16.0) gm/dL Hct (34.0-46.0) % Lymphocytes # (1.0-4.8) k/uL Sodium (137-145) mmol/L Potassium (3.5-5.1) mmol/L Glucose (74-99) mg/dL POC Glucose (mg/dL) 125 H 115 H 114 H (75-99) mg/dL 03/01/18 03/02/18 03/02/18 Range/Units 20:22 06:38 06:38 RBC 3.01 L (3.80-5.40) m/uL Hgb 8.8 L (11.4-16.0) gm/dL Hct 26.7 L (34.0-46.0) % Lymphocytes # 0.6 L (1.0-4.8) k/uL Sodium 132 L (137-145) mmol/L Potassium 3.1 L (3.5-5.1) mmol/L Glucose 108 H (74-99) mg/dL POC Glucose (mg/dL) 145 H (75-99) mg/dL 03/02/18 Range/Units 06:56 RBC (3.80-5.40) m/uL Hgb (11.4-16.0) gm/dL Hct (34.0-46.0) % Lymphocytes # (1.0-4.8) k/uL Sodium (137-145) mmol/L Potassium (3.5-5.1) mmol/L Glucose (74-99) mg/dL POC Glucose (mg/dL) 127 H (75-99) mg/dL Assessment and Plan (1) Lytic bone lesion of right femur Narrative/Plan: This was the original impression on the x-ray. However more specific imaging with the CT scans seem to indicate that this may be an AVN. My was attempted, but the patient could not tolerate the procedure. I discussed with her that this lesion may or may not represent malignancy. She is quite definite that she does not want to attempt the MRI again. I suggested other options such as dedicated computed tomography scan of the right hip, or bone scan. The patient was very definite that she does not want any further workup at all, including lab testing in this regard. He stated that she is 87 years old, and would not want any treatment even if this is a cancer or infection. She just wants to be kept comfortable with pain medications. I also discussed with her that in case this was a cancer, radiation to the hip could be considered from the comfort standpoint the early. Again, she was very definitive that she would not want any radiation in that case either. The patient was quite well oriented, and appear to have full comprehension of the situation. Therefore in this case, there does not appear to be any indication for further oncology workup. Defer to the admitting service for continued symptom management. Current Visit: Yes Status: Acute Priority: High Code(s): M89.9 - DISORDER OF BONE, UNSPECIFIED SNOMED Code(s): 29637074
[2018-03-02] MEDS: INSULIN ASPART 100 UNIT/ML 1 ML 10 ML VIAL SQ SCH ×4 (10:39→22:23)
[2018-03-02] MEDS: amLODIPine 10 MG TAB PO SCH (11:08)
[2018-03-02] MEDS: METOPROLOL TARTRATE 50 MG TAB PO SCH ×2 (11:08→22:25)
[2018-03-02] MEDS: HEPARIN SODIUM,PORCINE 5,000 UNIT/ML 1 ML VIAL SQ SCH ×2 (11:09→22:22)
[2018-03-02] MEDS: DOCUSATE 100 MG CAP PO SCH ×2 (11:09→22:22)
[2018-03-02] MEDS: PANTOPRAZOLE 40 MG TABLET PO SCH (11:09)
[2018-03-02] MEDS: LORATADINE 10 MG TAB PO SCH (11:09)
[2018-03-02] MEDS: INDAPAMIDE 2.5 MG TAB PO SCH (11:09)
[2018-03-02] MEDS: CHOLECALCIFEROL 400 UNIT TAB PO SCH (11:09)
[2018-03-02] MEDS: LISINOPRIL 20 MG TAB PO SCH (11:09)
[2018-03-02] MEDS: cloNIDine HCL 0.1 MG TAB PO SCH ×3 (11:10→22:22)
[2018-03-02] MEDS: hydrALAZINE HCL 50 MG TAB PO SCH ×3 (11:10→22:22)
[2018-03-02] MEDS: FENOFIBRATE 160 MG TAB PO SCH (11:18)
[2018-03-02] MEDS: MORPHINE SULFATE 4 MG/ML SYRINGE IV PRN ×2 (11:19→15:50)
[2018-03-02 11:49] LABS: Glucose,Whole Blood 152 mg/dL (75-99)
[2018-03-02] MEDS: CALCIUM CARBONATE 500 MG CHEWABLE PO SCH (12:55)
[2018-03-02 17:13] LABS: Glucose,Whole Blood 131 mg/dL (75-99)
[2018-03-02 20:28] LABS: Glucose,Whole Blood 186 mg/dL (75-99)
[2018-03-03 06:17] LABS: Glucose,Whole Blood 138 mg/dL (75-99)
[2018-03-03] MEDS: LEVOTHYROXINE 100 MCG TAB PO SCH (06:20)
[2018-03-03 06:31] LABS: Basophils % (A) 0 %; Eosinophils # (A) 0.1 k/uL (0-0.7); Eosinophils % (A) 2 %; HCT 27.5 % (34.0-46.0); HGB 8.9 gm/dL (11.4-16.0); Lymphocytes # (A) 0.6 k/uL (1.0-4.8); Lymphocytes % (A) 9 %; MCH 28.7 pg (25.0-35.0); MCHC 32.3 g/dL (31.0-37.0); Mean Platelet Volume 7.7; Monocytes # (A) 0.6 k/uL (0-1.0); Monocytes % (A) 9 %; Neutrophils % (A) 79 %; Platelet Count 440 k/uL (150-450); RBC 3.09 m/uL (3.80-5.40); WBC 6.3 k/uL (3.8-10.6)
[2018-03-03 06:39] LABS: Anion Gap 8 mmol/L; Blood Urea Nitrogen 12 mg/dL (7-17); Calcium 8.4 mg/dL (8.4-10.2); Carbon Dioxide 25 mmol/L (22-30); Chloride 97 mmol/L (98-107); Glucose 122 mg/dL (74-99); Potassium 3.2 mmol/L (3.5-5.1); Sodium 130 mmol/L (137-145)
[2018-03-03] MEDS: MORPHINE SULFATE 4 MG/ML SYRINGE IV PRN ×2 (06:58→10:46)
[2018-03-03] MEDS: INSULIN ASPART 100 UNIT/ML 1 ML 10 ML VIAL SQ SCH ×4 (06:58→23:40)
[2018-03-03] MEDS: POLYETHYLENE GLYCOL 3350 17 GM POWD.PACK PO SCH (10:31)
[2018-03-03] MEDS: DOCUSATE 100 MG CAP PO SCH ×2 (10:31→21:51)
[2018-03-03] MEDS: FENOFIBRATE 160 MG TAB PO SCH (10:31)
[2018-03-03] MEDS: HEPARIN SODIUM,PORCINE 5,000 UNIT/ML 1 ML VIAL SQ SCH ×2 (10:31→21:51)
[2018-03-03] MEDS: METOPROLOL TARTRATE 50 MG TAB PO SCH ×2 (10:32→21:51)
[2018-03-03] MEDS: amLODIPine 10 MG TAB PO SCH (10:32)
[2018-03-03] MEDS: hydrALAZINE HCL 50 MG TAB PO SCH ×3 (10:32→21:51)
[2018-03-03] MEDS: cloNIDine HCL 0.1 MG TAB PO SCH ×3 (10:32→21:52)
[2018-03-03] MEDS: PANTOPRAZOLE 40 MG TABLET PO SCH (10:32)
[2018-03-03] MEDS: CHOLECALCIFEROL 400 UNIT TAB PO SCH (10:35)
[2018-03-03] MEDS: INDAPAMIDE 2.5 MG TAB PO SCH (10:36)
[2018-03-03] MEDS: LORATADINE 10 MG TAB PO SCH (10:37)
[2018-03-03] MEDS: CALCIUM CARBONATE 500 MG CHEWABLE PO SCH (10:46)
[2018-03-03] MEDS: LISINOPRIL 20 MG TAB PO SCH (10:46)
[2018-03-03 11:33] LABS: Glucose,Whole Blood 116 mg/dL (75-99)
[2018-03-03] MEDS: SODIUM CHLORIDE 0.9% 1,000 ML IV SCH ×3 (16:14→21:52)
[2018-03-03 17:32] LABS: Glucose,Whole Blood 136 mg/dL (75-99)
[2018-03-03] MEDS ORDERED: BISACODYL 10 MG SUPP RECTAL STA (19:12)
[2018-03-03 23:14] LABS: Glucose,Whole Blood 120 mg/dL (75-99)
[2018-03-04] MEDS: ENALAPRILAT 1.25 MG/ML 1 ML VIAL IVP PRN (02:55)
[2018-03-04] MEDS: LEVOTHYROXINE 100 MCG TAB PO SCH (06:23)
[2018-03-04 07:29] LABS: Glucose,Whole Blood 132 mg/dL (75-99)
[2018-03-04] MEDS: INSULIN ASPART 100 UNIT/ML 1 ML 10 ML VIAL SQ SCH ×4 (07:52→21:25)
[2018-03-04] MEDS: MORPHINE SULFATE 4 MG/ML SYRINGE IV PRN ×2 (08:12→21:34)
[2018-03-04] MEDS: HEPARIN SODIUM,PORCINE 5,000 UNIT/ML 1 ML VIAL SQ SCH ×2 (09:10→21:24)
[2018-03-04] MEDS: CHOLECALCIFEROL 400 UNIT TAB PO SCH (09:10)
[2018-03-04] MEDS: POLYETHYLENE GLYCOL 3350 17 GM POWD.PACK PO SCH (09:10)
[2018-03-04] MEDS: CALCIUM CARBONATE 500 MG CHEWABLE PO SCH (09:11)
[2018-03-04] MEDS: hydrALAZINE HCL 50 MG TAB PO SCH ×3 (09:11→21:25)
[2018-03-04] MEDS: amLODIPine 10 MG TAB PO SCH (09:11)
[2018-03-04] MEDS: LISINOPRIL 20 MG TAB PO SCH (09:11)
[2018-03-04] MEDS: METOPROLOL TARTRATE 50 MG TAB PO SCH ×2 (09:11→21:25)
[2018-03-04] MEDS: DOCUSATE 100 MG CAP PO SCH ×2 (09:12→21:25)
[2018-03-04] MEDS: LORATADINE 10 MG TAB PO SCH (09:12)
[2018-03-04] MEDS: cloNIDine HCL 0.1 MG TAB PO SCH ×3 (09:12→21:25)
[2018-03-04] MEDS: PANTOPRAZOLE 40 MG TABLET PO SCH (09:12)
[2018-03-04] MEDS: FENOFIBRATE 160 MG TAB PO SCH (09:12)
[2018-03-04] MEDS: INDAPAMIDE 2.5 MG TAB PO SCH (09:14)
[2018-03-04] MEDS: SODIUM CHLORIDE 0.9% 1,000 ML IV SCH (09:17)
[2018-03-04 12:04] LABS: Glucose,Whole Blood 130 mg/dL (75-99)
[2018-03-04 12:11] LABS: Anion Gap 8 mmol/L; Blood Urea Nitrogen 10 mg/dL (7-17); Calcium 8.3 mg/dL (8.4-10.2); Carbon Dioxide 27 mmol/L (22-30); Chloride 95 mmol/L (98-107); Glucose 131 mg/dL (74-99); Potassium 3.1 mmol/L (3.5-5.1); Sodium 130 mmol/L (137-145)
[2018-03-04 12:50] LABS: HCT 27.2 % (34.0-46.0); MCH 28.8 pg (25.0-35.0); MCHC 33.2 g/dL (31.0-37.0); MCV 86.8 fL (80.0-100.0); Platelet Count 464 k/uL (150-450); RBC 3.13 m/uL (3.80-5.40); RDW 13.8 % (11.5-15.5); WBC 6.9 k/uL (3.8-10.6)
[2018-03-04] MEDS: ACETAMINOPHEN TAB 325 MG TAB PO PRN (14:52)
[2018-03-04 15:00] LABS: Band Neutrophils % 1 %; Lymphocytes # (M) 0.35 k/uL (1.0-4.8); Monocytes # (M) 0.07 k/uL (0-1.0); Myelocytes # (M) 0.14 k/uL (0); Myelocytes % 2 %; Neutrophils % (M) 92 %; Nucleated Red Blood Cells 0 /100 WBC (0-0); Total Cells Counted 200
[2018-03-04 15:01] LABS: Anisocytosis (M) Present; Polychromasia Present
[2018-03-04 16:50] LABS: Glucose,Whole Blood 124 mg/dL (75-99)
[2018-03-04 20:19] LABS: Glucose,Whole Blood 173 mg/dL (75-99)
[2018-03-05] MEDS: MORPHINE SULFATE 4 MG/ML SYRINGE IV PRN ×3 (04:18→17:47)
[2018-03-05] MEDS: LEVOTHYROXINE 100 MCG TAB PO SCH (05:33)
[2018-03-05] MEDS: SODIUM CHLORIDE 0.9% 1,000 ML IV SCH ×2 (05:34→16:26)
[2018-03-05 07:15] LABS: Glucose,Whole Blood 128 mg/dL (75-99)
[2018-03-05] MEDS: INSULIN ASPART 100 UNIT/ML 1 ML 10 ML VIAL SQ SCH ×4 (07:23→22:46)
[2018-03-05 07:53] LABS: Basophils % (A) 0 %; Eosinophils # (A) 0.1 k/uL (0-0.7); Eosinophils % (A) 2 %; HCT 28.3 % (34.0-46.0); HGB 9.2 gm/dL (11.4-16.0); Lymphocytes # (A) 0.6 k/uL (1.0-4.8); Lymphocytes % (A) 7 %; MCH 28.7 pg (25.0-35.0); MCHC 32.5 g/dL (31.0-37.0); MCV 88.2 fL (80.0-100.0); Mean Platelet Volume 7.4; Monocytes # (A) 0.5 k/uL (0-1.0); Monocytes % (A) 6 %; Neutrophils % (A) 84 %; Platelet Count 520 k/uL (150-450); RBC 3.21 m/uL (3.80-5.40); RDW 13.9 % (11.5-15.5); WBC 8.3 k/uL (3.8-10.6)
[2018-03-05] MEDS: METOPROLOL TARTRATE 50 MG TAB PO SCH ×2 (08:14→22:46)
[2018-03-05] MEDS: hydrALAZINE HCL 50 MG TAB PO SCH ×3 (08:14→22:40)
[2018-03-05] MEDS: CALCIUM CARBONATE 500 MG CHEWABLE PO SCH (08:14)
[2018-03-05] MEDS: HEPARIN SODIUM,PORCINE 5,000 UNIT/ML 1 ML VIAL SQ SCH ×2 (08:14→22:46)
[2018-03-05] MEDS: amLODIPine 10 MG TAB PO SCH (08:14)
[2018-03-05] MEDS: FENOFIBRATE 160 MG TAB PO SCH (08:15)
[2018-03-05] MEDS: LISINOPRIL 20 MG TAB PO SCH (08:15)
[2018-03-05] MEDS: LORATADINE 10 MG TAB PO SCH (08:15)
[2018-03-05] MEDS: PANTOPRAZOLE 40 MG TABLET PO SCH (08:15)
[2018-03-05] MEDS: cloNIDine HCL 0.1 MG TAB PO SCH ×3 (08:15→22:47)
[2018-03-05] MEDS: INDAPAMIDE 2.5 MG TAB PO SCH (08:15)
[2018-03-05] MEDS: CHOLECALCIFEROL 400 UNIT TAB PO SCH (08:15)
[2018-03-05] MEDS: DOCUSATE 100 MG CAP PO SCH ×2 (08:23→22:46)
[2018-03-05] MEDS: POLYETHYLENE GLYCOL 3350 17 GM POWD.PACK PO SCH (08:23)
[2018-03-05 09:01] LABS: Anion Gap 10 mmol/L; Blood Urea Nitrogen 10 mg/dL (7-17); Calcium 8.4 mg/dL (8.4-10.2); Carbon Dioxide 26 mmol/L (22-30); Chloride 95 mmol/L (98-107); Glucose 103 mg/dL (74-99); Sodium 131 mmol/L (137-145)
[2018-03-05 09:03] LABS: Potassium 3.5 mmol/L (3.5-5.1)
--- NOTE | 2018-03-05 10:30 | P.PN ---
Subjective Progress Note Date: 03/02/18 Ms. Sofia is a 87-year-old female with a past medical history of hypertension, diabetes, hypothyroidism coming into the hospital with a chief complaint of generalized weakness and tiredness. She states that her right hip pain has been going on for the past couple of years but for the past 1 week it became very severe and debilitating. Patient had an x-ray of the right hip showing possible right femur lytic lesions and also avascular necrosis of the right femoral head. She had a CAT scan of the abdomen showing left-sided hydronephrosis and hydroureter with decreased left renal function and features consistent with chronic bladder obstruction. So oncology and orthopedic surgery has been consulted. So as a part of workup for this MRI of the right femur was ordered. But patient could not get the MRI as she could not lay flat for the MRI. On 03/02/2018-patient is lying comfortably in the bed appears to be in no acute distress. She has family members at the bedside. Patient states that she has ongoing pain in the right hip and leg. Patient states that she does not want any kind of procedures done or any kind of workup done for that. She stated that she is old and just wants to be comfortable without any kind of interventions. On review of systems-patient denies having any fevers chills or rigors. No chest pain or palpitations. No shortness of breath or cough. No abdominal pain nausea vomiting or diarrhea. Patient states that her pain is controlled with the pain medication. Objective - Vital Signs Vital signs: Vital Signs Temp 98.7 F 03/02/18 15:00 Pulse 63 03/02/18 15:00 Resp 16 03/02/18 15:00 BP 154/66 03/02/18 15:00 Pulse Ox 95 03/02/18 15:00 Intake & Output 03/01/18 03/02/18 03/02/18 18:59 06:59 18:59 Intake Total 1100 800 120 Output Total 700 1025 1300 Balance 400 -225 -1180 Intake: Intake, IV Titration 1100 800 Amount Sodium Chloride 0.9% 1, 1100 800 000 ml @ 100 mls/hr IV . Q10H [facility] Rx#:[id number] Oral 120 Output: Urine 700 1025 1300 Uretheral (Arreaga) 700 1300 Other: Voiding Method Indwelling Catheter Indwelling Catheter - Exam General appearance: alert, in no apparent distress Head exam: Present: atraumatic, normocephalic, normal inspection Eye exam: Present: normal appearance, PERRL, EOMI. Absent: scleral icterus, conjunctival injection, periorbital swelling ENT exam: Present: normal exam, mucous membranes moist Neck exam: Present: normal inspection. Absent: tenderness, meningismus, lymphadenopathy Respiratory exam: Decreased breath sounds in bilateral lower lung brown Cardiovascular Exam: Present: regular rate, normal rhythm, normal heart sounds. GI/Abdominal exam: Present: distended, normal bowel sounds. Absent: soft, tenderness, guarding, rebound, rigid Extremities exam: Present: normal inspection, full ROM, normal capillary refill. Absent: tenderness, pedal edema, joint swelling, calf tenderness Right Hip exam: Patient is tenderness over the greater trochanter and cannot flex it due to severe pain. Neurological exam: Present: alert, no focal deficits Psychiatric exam: Present: normal affect, normal mood - Labs CBC & Chem 7: 03/05/18 06:21 03/05/18 06:27 Labs: Abnormal Lab Results - Last 24 Hours (Table) 03/01/18 03/02/18 03/02/18 Range/Units 20:22 06:38 06:38 RBC 3.01 L (3.80-5.40) m/uL Hgb 8.8 L (11.4-16.0) gm/dL Hct 26.7 L (34.0-46.0) % Lymphocytes # 0.6 L (1.0-4.8) k/uL Sodium 132 L (137-145) mmol/L Potassium 3.1 L (3.5-5.1) mmol/L Glucose 108 H (74-99) mg/dL POC Glucose (mg/dL) 145 H (75-99) mg/dL 03/02/18 03/02/18 03/02/18 Range/Units 06:56 11:46 17:10 RBC (3.80-5.40) m/uL Hgb (11.4-16.0) gm/dL Hct (34.0-46.0) % Lymphocytes # (1.0-4.8) k/uL Sodium (137-145) mmol/L Potassium (3.5-5.1) mmol/L Glucose (74-99) mg/dL POC Glucose (mg/dL) 127 H 152 H 131 H (75-99) mg/dL Assessment and Plan Assessment: ASSESSMENT 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 Orthopedic surgery and oncology evaluated the patient and sign of as the patient does not want any kind of further testing done. Patient is being managed for pain. PT OT on board and evaluating the patient. I discussed in detail that she can get other types of tests like CAT scan for further evaluation of the femur but patient does not want to proceed with any further testing. She states that if she is old and does not want to go through any more testing. This was discussed with the family at bedside in detail. Further recommendations to follow depending on the progress the patient.
--- NOTE | 2018-03-05 10:32 | P.PN ---
Subjective Progress Note Date: 03/03/18 Principal diagnosis: Right Hip avascular necrosis Ms. Sofia is a 87-year-old female with a past medical history of hypertension, diabetes, hypothyroidism coming into the hospital with a chief complaint of generalized weakness and tiredness. She states that her right hip pain has been going on for the past couple of years but for the past 1 week it became very severe and debilitating. Patient had an x-ray of the right hip showing possible right femur lytic lesions and also avascular necrosis of the right femoral head. She had a CAT scan of the abdomen showing left-sided hydronephrosis and hydroureter with decreased left renal function and features consistent with chronic bladder obstruction. So oncology and orthopedic surgery has been consulted. So as a part of workup for this MRI of the right femur was ordered. But patient could not get the MRI as she could not lay flat for the MRI. On 03/03/2018-patient is lying comfortably in the bed appears to be in no acute distress. Patient states that she has ongoing pain in the right hip and leg. Patient states that she does not want any kind of procedures done or any kind of workup done for that. She stated that she is old and just wants to be comfortable without any kind of interventions. On review of systems-patient denies having any fevers chills or rigors. No chest pain or palpitations. No shortness of breath or cough. No abdominal pain nausea vomiting or diarrhea. Patient states that her pain is controlled with the pain medication. Objective - Vital Signs Vital signs: Vital Signs Temp 97.3 F L 03/03/18 15:48 Pulse 63 03/03/18 15:48 Resp 16 03/03/18 15:48 BP 169/62 03/03/18 15:48 Pulse Ox 94 L 03/03/18 06:53 Intake & Output 03/03/18 03/03/18 03/04/18 06:59 18:59 06:59 Output Total 1200 1200 Balance -1200 -1200 Output: Urine 1200 1200 Uretheral (Arreaga) 1200 Other: Voiding Method Indwelling Catheter - Exam General appearance: alert, in no apparent distress Head exam: Present: atraumatic, normocephalic, normal inspection Eye exam: Present: normal appearance, PERRL, EOMI. Absent: scleral icterus, conjunctival injection, periorbital swelling ENT exam: Present: normal exam, mucous membranes moist Neck exam: Present: normal inspection. Absent: tenderness, meningismus, lymphadenopathy Respiratory exam: Decreased breath sounds in bilateral lower lung brown Cardiovascular Exam: Present: regular rate, normal rhythm, normal heart sounds. GI/Abdominal exam: Present: distended, normal bowel sounds. Absent: soft, tenderness, guarding, rebound, rigid Extremities exam: Present: normal inspection, full ROM, normal capillary refill. Absent: tenderness, pedal edema, joint swelling, calf tenderness Right Hip exam: Patient is tenderness over the greater trochanter and cannot flex it due to severe pain. Neurological exam: Present: alert, no focal deficits - Labs CBC & Chem 7: 03/05/18 06:21 03/05/18 06:27 Labs: Abnormal Lab Results - Last 24 Hours (Table) 03/02/18 03/03/18 03/03/18 Range/Units 20:27 05:30 05:30 RBC 3.09 L (3.80-5.40) m/uL Hgb 8.9 L (11.4-16.0) gm/dL Hct 27.5 L (34.0-46.0) % Lymphocytes # 0.6 L (1.0-4.8) k/uL Sodium 130 L (137-145) mmol/L Potassium 3.2 L (3.5-5.1) mmol/L Chloride 97 L (98-107) mmol/L Glucose 122 H (74-99) mg/dL POC Glucose (mg/dL) 186 H (75-99) mg/dL 03/03/18 03/03/18 03/03/18 Range/Units 06:16 11:31 17:31 RBC (3.80-5.40) m/uL Hgb (11.4-16.0) gm/dL Hct (34.0-46.0) % Lymphocytes # (1.0-4.8) k/uL Sodium (137-145) mmol/L Potassium (3.5-5.1) mmol/L Chloride (98-107) mmol/L Glucose (74-99) mg/dL POC Glucose (mg/dL) 138 H 116 H 136 H (75-99) mg/dL Assessment and Plan Assessment: ASSESSMENT Right hip pain secondary to avascular necrosis Right femur lytic lesions Chronic debility Gait dysfunction Type 2 diabetes mellitus Hypertension Hypothyroidism Dementia Hypovolemic hyponatremia Chronic anemia PLAN: Orthopedic surgery and oncology evaluated the patient and signed of as the patient does not want any kind of further testing done. Patient is being managed for pain. PT OT on board and evaluating the patient. I discussed in detail that she can get other types of tests like CAT scan for further evaluation of the femur but patient does not want to proceed with any further testing. She states that if she is old and does not want to go through any more testing. Further recommendations to follow depending on the progress the patient.
--- NOTE | 2018-03-05 10:35 | P.PN ---
Subjective Progress Note Date: 03/04/18 Principal diagnosis: Right Hip avascular necrosis Ms. Sofia is a 87-year-old female with a past medical history of hypertension, diabetes, hypothyroidism coming into the hospital with a chief complaint of generalized weakness and tiredness. She states that her right hip pain has been going on for the past couple of years but for the past 1 week it became very severe and debilitating. Patient had an x-ray of the right hip showing possible right femur lytic lesions and also avascular necrosis of the right femoral head. She had a CAT scan of the abdomen showing left-sided hydronephrosis and hydroureter with decreased left renal function and features consistent with chronic bladder obstruction. So oncology and orthopedic surgery has been consulted. So as a part of workup for this MRI of the right femur was ordered. But patient could not get the MRI as she could not lay flat for the MRI. On 03/04/2018-patient is lying comfortably in the bed appears to be in no acute distress. Family members at the bed side. Patient states that she has ongoing pain in the right hip and leg. She stated that she is old and just wants to be comfortable without any kind of tests done further. On review of systems-patient denies having any fevers chills or rigors. No chest pain or palpitations. No shortness of breath or cough. No abdominal pain nausea vomiting or diarrhea. Patient states that her pain is controlled with the pain medication. Objective - Vital Signs Vital signs: Vital Signs Temp 98.8 F 03/04/18 19:00 Pulse 69 03/04/18 19:00 Resp 16 03/04/18 19:00 BP 189/69 03/04/18 19:00 Pulse Ox 97 03/04/18 19:00 Intake & Output 03/04/18 03/04/18 03/05/18 06:59 18:59 06:59 Intake Total 500 Output Total 1900 700 Balance -1900 -200 Intake: Oral 500 Output: Urine 1900 700 Uretheral (Arreaga) 700 Other: Voiding Method Indwelling Catheter Indwelling Catheter - Exam General appearance: alert, in no apparent distress Head exam: Present: atraumatic, normocephalic, normal inspection Eye exam: Present: normal appearance, PERRL, EOMI. Absent: scleral icterus, conjunctival injection, periorbital swelling ENT exam: Present: normal exam, mucous membranes moist Neck exam: Present: normal inspection. Absent: tenderness, meningismus, lymphadenopathy Respiratory exam: Decreased breath sounds in bilateral lower lung brown Cardiovascular Exam: Present: regular rate, normal rhythm, normal heart sounds. GI/Abdominal exam: Present: distended, normal bowel sounds. Absent: soft, tenderness, guarding, rebound, rigid Extremities exam: Present: normal inspection, full ROM, normal capillary refill. Absent: tenderness, pedal edema, joint swelling, calf tenderness Right Hip exam: Patient is tenderness over the greater trochanter and cannot flex it due to severe pain. Neurological exam: Present: alert, no focal deficits - Labs CBC & Chem 7: 03/05/18 06:21 03/05/18 06:27 Labs: Abnormal Lab Results - Last 24 Hours (Table) 03/04/18 03/04/18 03/04/18 Range/Units 07:27 11:00 11:00 RBC 3.13 L (3.80-5.40) m/uL Hgb 9.0 L (11.4-16.0) gm/dL Hct 27.2 L (34.0-46.0) % Plt Count 464 H (150-450) k/uL Lymphocytes # (Manual) 0.35 L (1.0-4.8) k/uL Myelocytes # (Manual) 0.14 H (0) k/uL Sodium 130 L (137-145) mmol/L Potassium 3.1 L (3.5-5.1) mmol/L Chloride 95 L (98-107) mmol/L Glucose 131 H (74-99) mg/dL POC Glucose (mg/dL) 132 H (75-99) mg/dL Calcium 8.3 L (8.4-10.2) mg/dL 03/04/18 03/04/18 03/04/18 Range/Units 12:03 16:49 20:08 RBC (3.80-5.40) m/uL Hgb (11.4-16.0) gm/dL Hct (34.0-46.0) % Plt Count (150-450) k/uL Lymphocytes # (Manual) (1.0-4.8) k/uL Myelocytes # (Manual) (0) k/uL Sodium (137-145) mmol/L Potassium (3.5-5.1) mmol/L Chloride (98-107) mmol/L Glucose (74-99) mg/dL POC Glucose (mg/dL) 130 H 124 H 173 H (75-99) mg/dL Calcium (8.4-10.2) mg/dL Assessment and Plan Assessment: ASSESSMENT Right hip pain secondary to avascular necrosis Right femur lytic lesions Chronic debility Gait dysfunction Type 2 diabetes mellitus Hypertension Hypothyroidism Dementia Hypovolemic hyponatremia Chronic anemia PLAN: Orthopedic surgery and oncology evaluated the patient and signed of as the patient does not want any kind of further testing done. Patient is being managed for pain. PT OT on board and evaluating the patient. I discussed in detail that she can get other types of tests like CAT scan for further evaluation of the femur but patient does not want to proceed with any further testing. She states that if she is old and does not want to go through any more testing. Patient's family members at the bedside. They had multiple questions regarding the patient's progress. I discussed with them in detail the findings of the CAT scan of the abdomen and also the x-ray findings. Patient's family members are aware that she does not want to get any further testing done. So eventually the plan was to have the patient sent to rehab. orchid worker on board and working on it. Spent 30 minutes discussing all of the above with the family. Further recommendations to follow depending on the progress the patient.
[2018-03-05 11:22] LABS: Glucose,Whole Blood 156 mg/dL (75-99)
[2018-03-05 17:31] LABS: Glucose,Whole Blood 126 mg/dL (75-99)
[2018-03-05 20:36] LABS: Glucose,Whole Blood 139 mg/dL (75-99)
--- NOTE | 2018-03-05 21:41 | P.PN ---
Subjective Progress Note Date: 03/05/18 Principal diagnosis: Right Hip avascular necrosis Ms. Sofia is a 87-year-old female with a past medical history of hypertension, diabetes, hypothyroidism coming into the hospital with a chief complaint of generalized weakness and tiredness. She states that her right hip pain has been going on for the past couple of years but for the past 1 week it became very severe and debilitating. Patient had an x-ray of the right hip showing possible right femur lytic lesions and also avascular necrosis of the right femoral head. She had a CAT scan of the abdomen showing left-sided hydronephrosis and hydroureter with decreased left renal function and features consistent with chronic bladder obstruction. So oncology and orthopedic surgery has been consulted, as a part of workup for this MRI of the right femur was ordered. But patient could not get the MRI as she could not lay flat for the MRI. On 03/05/2018-patient is lying comfortably in the bed appears to be in no acute distress. Patient states that she has ongoing pain in the right hip and leg. On review of systems-patient denies having any fevers chills or rigors. No chest pain or palpitations. No shortness of breath or cough. No abdominal pain nausea vomiting or diarrhea. Patient states that her pain is controlled with the pain medication currently Active Medications Generic Name Dose Route Start Last Admin Trade Name Freq PRN Reason Stop Dose Admin Acetaminophen 650 mg 02/27/18 21:29 03/04/18 14:52 Tylenol Tab PO 650 mg Q6HR PRN Administration Mild Pain or Fever > 100.5 Amlodipine Besylate 10 mg 03/01/18 09:00 03/05/18 08:14 Norvasc PO 10 mg DAILY [facility] Administration Calcium Carbonate/Glycine 500 mg 03/01/18 09:00 03/05/18 08:14 Tums PO 500 mg DAILY [facility] Administration Cholecalciferol 400 unit 03/05/18 09:00 03/05/18 08:15 Vitamin D3 PO 400 unit DAILY [facility] Administration Clonidine 0.1 mg 03/01/18 16:00 03/05/18 17:45 Catapres PO 0.1 mg TID [facility] Administration Clonidine 0.1 mg 03/01/18 14:35 Catapres PO Q4HR PRN Hypertension Docusate Sodium 100 mg 03/02/18 21:00 03/05/18 08:23 Colace PO Not Given BID [facility] Enalaprilat 1.25 mg 02/27/18 21:32 03/04/18 02:55 Vasotec IVP 1.25 mg Q6H PRN Administration Hypertension Fenofibrate 160 mg 03/01/18 09:00 03/05/18 08:15 Lofibra PO 160 mg DAILY [facility] Administration Heparin Sodium (Porcine) 5,000 unit 02/28/18 21:00 03/05/18 08:14 Heparin SQ 5,000 unit Q12HR [facility] Administration Hydralazine HCl 50 mg 02/28/18 01:30 03/05/18 17:45 Apresoline PO 50 mg TID [facility] Administration Sodium Chloride 1,000 mls @ 100 mls/hr 02/27/18 20:30 03/05/18 16:26 Saline 0.9% IV Not Given .Q10H [facility] Indapamide 2.5 mg 03/05/18 09:00 03/05/18 08:15 Lozol PO 2.5 mg DAILY [facility] Administration Insulin Aspart 0 unit 02/28/18 17:30 03/05/18 17:38 Novolog SQ Not Given ACHS [facility] Protocol Levothyroxine Sodium 100 mcg 03/01/18 06:30 03/05/18 05:33 Synthroid PO 100 mcg DAILY@0630 [facility] Administration Lisinopril 20 mg 03/01/18 09:00 03/05/18 08:15 Zestril PO 20 mg DAILY [facility] Administration Loratadine 10 mg 03/01/18 09:00 03/05/18 08:15 Claritin PO 10 mg DAILY [facility] Administration Metoprolol Tartrate 200 mg 02/28/18 11:00 03/05/18 08:14 Lopressor PO 200 mg Q12HR [facility] Administration Morphine Sulfate 4 mg 02/27/18 21:29 03/05/18 17:47 Morphine Sulfate (Inj) IV 4 mg Q4HR PRN Administration Severe Pain Naloxone HCl 0.2 mg 02/27/18 21:29 Narcan IV Q2M PRN Opioid Reversal Ondansetron HCl 4 mg 02/27/18 21:29 Zofran IVP Q8HR PRN Nausea And Vomiting Pantoprazole Sodium 40 mg 03/02/18 07:30 03/05/18 08:15 Protonix PO 40 mg AC-BRKFST [facility] Administration Polyethylene Glycol 17 gm 03/03/18 09:00 03/05/18 08:23 Miralax PO Not Given DAILY [facility] Ropinirole HCl 0.25 mg 02/28/18 21:00 03/04/18 21:25 Requip PO 0.25 mg HS [facility] Administration Objective - Vital Signs Vital signs: Vital Signs Temp 98.9 F 03/05/18 08:16 Pulse 69 03/05/18 08:16 Resp 16 03/05/18 08:16 BP 186/68 03/05/18 08:16 Pulse Ox 96 03/05/18 08:16 Intake & Output 03/04/18 03/05/18 03/05/18 18:59 06:59 18:59 Intake Total 500 2430 Output Total 700 1325 Balance -200 1105 Intake: Intake, IV Titration 1600 Amount Sodium Chloride 0.9% 1, 1600 000 ml @ 100 mls/hr IV . Q10H [facility] Rx#:[id number] Oral 500 830 Output: Urine 700 1325 Uretheral (Arreaga) 700 Other: Voiding Method Indwelling Catheter Indwelling Catheter # Voids 3 # Bowel Movements 1 - Exam General appearance: alert, in no apparent distress Head exam: Present: atraumatic, normocephalic, normal inspection Eye exam: Present: normal appearance, PERRL, EOMI. Absent: scleral icterus, conjunctival injection, periorbital swelling ENT exam: Present: normal exam, mucous membranes moist Neck exam: Present: normal inspection. Absent: tenderness, meningismus, lymphadenopathy Respiratory exam: Decreased breath sounds in bilateral lower lung brown Cardiovascular Exam: Present: regular rate, normal rhythm, normal heart sounds. GI/Abdominal exam: Present: distended, normal bowel sounds. Absent: soft, tenderness, guarding, rebound, rigid Extremities exam: no edema Right Hip exam: Patient is tenderness over the greater trochanter and cannot flex it due to severe pain. Neurological exam: Present: alert, no focal deficits - Labs CBC & Chem 7: 03/05/18 06:21 03/05/18 06:27 Labs: Abnormal Lab Results - Last 24 Hours (Table) 03/04/18 03/04/18 03/05/18 Range/Units 16:49 20:08 06:21 RBC 3.21 L (3.80-5.40) m/uL Hgb 9.2 L (11.4-16.0) gm/dL Hct 28.3 L (34.0-46.0) % Plt Count 520 H (150-450) k/uL Lymphocytes # 0.6 L (1.0-4.8) k/uL Sodium (137-145) mmol/L Chloride (98-107) mmol/L Creatinine (0.52-1.04) mg/dL Glucose (74-99) mg/dL POC Glucose (mg/dL) 124 H 173 H (75-99) mg/dL 03/05/18 03/05/18 03/05/18 Range/Units 06:27 07:04 11:10 RBC (3.80-5.40) m/uL Hgb (11.4-16.0) gm/dL Hct (34.0-46.0) % Plt Count (150-450) k/uL Lymphocytes # (1.0-4.8) k/uL Sodium 131 L (137-145) mmol/L Chloride 95 L (98-107) mmol/L Creatinine 0.45 L (0.52-1.04) mg/dL Glucose 103 H (74-99) mg/dL POC Glucose (mg/dL) 128 H 156 H (75-99) mg/dL Assessment and Plan Assessment: ASSESSMENT Right hip pain secondary to avascular necrosis Right femur lytic lesions Chronic debility Gait dysfunction Type 2 diabetes mellitus Hypertension Hypothyroidism Dementia Hypovolemic hyponatremia Chronic anemia PLAN: Orthopedic surgery and oncology evaluated the patient and signed of as the patient does not want any kind of further testing done. Patient is being managed for pain. She continues to be on IV pain meds. PT OT on board and evaluating the patient. So eventually the plan was to have the patient sent to rehab. grease worker on board and working on it. Further recommendations based on the clinical course. Prognosis is poor.
[2018-03-06] MEDS: LEVOTHYROXINE 100 MCG TAB PO SCH (06:24)
[2018-03-06] MEDS: MORPHINE SULFATE 4 MG/ML SYRINGE IV PRN ×2 (06:24→11:16)
[2018-03-06 07:11] LABS: Glucose,Whole Blood 121 mg/dL (75-99)
[2018-03-06] MEDS: SODIUM CHLORIDE 0.9% 1,000 ML IV SCH ×2 (08:35→08:51)
[2018-03-06] MEDS: INSULIN ASPART 100 UNIT/ML 1 ML 10 ML VIAL SQ SCH ×4 (08:36→22:51)
[2018-03-06] MEDS: HEPARIN SODIUM,PORCINE 5,000 UNIT/ML 1 ML VIAL SQ SCH ×2 (08:47→22:51)
[2018-03-06] MEDS: METOPROLOL TARTRATE 50 MG TAB PO SCH ×2 (08:47→22:50)
[2018-03-06] MEDS: amLODIPine 10 MG TAB PO SCH (08:47)
[2018-03-06] MEDS: DOCUSATE 100 MG CAP PO SCH ×2 (08:47→22:50)
[2018-03-06] MEDS: POLYETHYLENE GLYCOL 3350 17 GM POWD.PACK PO SCH (08:47)
[2018-03-06] MEDS: ENALAPRILAT 1.25 MG/ML 1 ML VIAL IVP PRN (08:47)
[2018-03-06] MEDS: FENOFIBRATE 160 MG TAB PO SCH (08:47)
[2018-03-06] MEDS: LORATADINE 10 MG TAB PO SCH (08:47)
[2018-03-06] MEDS: PANTOPRAZOLE 40 MG TABLET PO SCH (08:48)
[2018-03-06] MEDS: cloNIDine HCL 0.1 MG TAB PO SCH ×3 (08:48→22:50)
[2018-03-06] MEDS: CALCIUM CARBONATE 500 MG CHEWABLE PO SCH (08:48)
[2018-03-06] MEDS: hydrALAZINE HCL 50 MG TAB PO SCH ×3 (08:48→22:50)
[2018-03-06] MEDS: LISINOPRIL 20 MG TAB PO SCH (08:48)
[2018-03-06] MEDS: ACETAMINOPHEN TAB 325 MG TAB PO PRN (08:50)
[2018-03-06] MEDS: CHOLECALCIFEROL 400 UNIT TAB PO SCH (08:51)
[2018-03-06] MEDS: INDAPAMIDE 2.5 MG TAB PO SCH (08:51)
[2018-03-06 11:13] LABS: Glucose,Whole Blood 124 mg/dL (75-99)
--- NOTE | 2018-03-06 12:48 | CDI ---
Last Revision, April 2017 Documentation Clarification Form Date: 03/06/18 From: Liz Guerra RN Admit Date: 02/27/2018 9:19:00 PM Patient Name: Philly Sofia Visit Number: [id number] ATTENTION: The Clinical Documentation Specialists (CDI) and [facility] Coding Staff appreciate your assistance in clarifying documentation. Please respond to the clarification below the line at the bottom and electronically sign. The CDI & [facility] Coding staff will review the response and follow-up if needed. Please note: Queries are made part of the Legal Health Record. If you have any questions, please contact the author of this message via ITS. Patricia Klein MD, A diagnosis of anemia lacks specificity to accurately reflect your patients severity of condition and clarification is needed. Pt admitted with suspicious silvana lesion, right leg and side pain History/Risk Factors:DM 2, HTN, hypothyroid, dementia, hyponatremia Clinical indicators: Hemoglobin: 10.9 Hematocrit:32.9 Chronic anemia is stated throughout the documentation. Treatment: Monitor labs In order to capture the severity of condition, please clarify the type of anemia and etiology if known: Acute blood loss anemia Acute on chronic blood loss anemia Chronic blood loss anemia Iron deficiency anemia Anemia due to malignancy Unable to determine Other, please specify MTDD
[2018-03-06] MEDS: HYDROcodone/APAP 5-325MG 1 EACH TAB PO PRN ×2 (14:27→22:49)
[2018-03-06 16:40] LABS: Glucose,Whole Blood 138 mg/dL (75-99)
[2018-03-06 20:24] LABS: Glucose,Whole Blood 116 mg/dL (75-99)
[2018-03-06 21:15] LABS: Hemoglobin A1C 5.9 % (4.0-6.0)
[2018-03-07] MEDS: HYDROcodone/APAP 5-325MG 1 EACH TAB PO PRN ×4 (02:58→15:42)
[2018-03-07] MEDS: LEVOTHYROXINE 100 MCG TAB PO SCH (06:01)
[2018-03-07 07:13] LABS: Glucose,Whole Blood 127 mg/dL (75-99)
[2018-03-07] MEDS: INSULIN ASPART 100 UNIT/ML 1 ML 10 ML VIAL SQ SCH ×2 (07:36→12:44)
[2018-03-07] MEDS: POLYETHYLENE GLYCOL 3350 17 GM POWD.PACK PO SCH (07:38)
[2018-03-07] MEDS: LORATADINE 10 MG TAB PO SCH (07:38)
[2018-03-07] MEDS: HEPARIN SODIUM,PORCINE 5,000 UNIT/ML 1 ML VIAL SQ SCH (07:39)
[2018-03-07] MEDS: hydrALAZINE HCL 50 MG TAB PO SCH ×2 (07:41→15:42)
[2018-03-07] MEDS: METOPROLOL TARTRATE 50 MG TAB PO SCH (07:41)
[2018-03-07] MEDS: FENOFIBRATE 160 MG TAB PO SCH (07:42)
[2018-03-07] MEDS: INDAPAMIDE 2.5 MG TAB PO SCH (07:42)
[2018-03-07] MEDS: CHOLECALCIFEROL 400 UNIT TAB PO SCH (07:42)
[2018-03-07] MEDS: cloNIDine HCL 0.1 MG TAB PO SCH ×2 (07:42→15:41)
[2018-03-07] MEDS: amLODIPine 10 MG TAB PO SCH (07:42)
[2018-03-07] MEDS: PANTOPRAZOLE 40 MG TABLET PO SCH (07:42)
[2018-03-07] MEDS: CALCIUM CARBONATE 500 MG CHEWABLE PO SCH (07:42)
[2018-03-07] MEDS: DOCUSATE 100 MG CAP PO SCH (07:43)
[2018-03-07] MEDS: LISINOPRIL 20 MG TAB PO SCH (07:43)
[2018-03-07 08:16] VITALS: PULSE 63; RESP 12
[2018-03-07 12:47] LABS: Glucose,Whole Blood 133 mg/dL (75-99)
--- NOTE | 2018-03-07 13:39 | P.PN ---
Subjective Progress Note Date: 03/06/18 Principal diagnosis: Right Hip avascular necrosis Ms. Sofia is a 87-year-old female with a past medical history of hypertension, diabetes, hypothyroidism coming into the hospital with a chief complaint of generalized weakness and tiredness. She states that her right hip pain has been going on for the past couple of years but for the past 1 week it became very severe and debilitating. Patient had an x-ray of the right hip showing possible right femur lytic lesions and also avascular necrosis of the right femoral head. She had a CAT scan of the abdomen showing left-sided hydronephrosis and hydroureter with decreased left renal function and features consistent with chronic bladder obstruction. So oncology and orthopedic surgery has been consulted, as a part of workup for this MRI of the right femur was ordered. But patient could not get the MRI as she could not lay flat for the MRI. On 03/05/2018-patient is lying comfortably in the bed appears to be in no acute distress. Patient states that she has ongoing pain in the right hip and leg. 03/06/2018 Pain is much improved with morphine. Pain medication will be changed to [place] 5 every 4 hourly when necessary for pain. Otherwise patient refused to get MRI and further workup to evaluate for right lower extremity bony lesion. Anticipate discharged to rehab once pain is controlled with oral medications. On review of systems-patient denies having any fevers chills or rigors. No chest pain or palpitations. No shortness of breath or cough. No abdominal pain nausea vomiting or diarrhea. Patient states that her pain is controlled with the pain medication currently Active Medications Generic Name Dose Route Start Last Admin Trade Name Freq PRN Reason Stop Dose Admin Acetaminophen 650 mg 02/27/18 21:29 03/04/18 14:52 Tylenol Tab PO 650 mg Q6HR PRN Administration Mild Pain or Fever > 100.5 Amlodipine Besylate 10 mg 03/01/18 09:00 03/05/18 08:14 Norvasc PO 10 mg DAILY ARISTIDES Administration Calcium Carbonate/Glycine 500 mg 03/01/18 09:00 03/05/18 08:14 Tums PO 500 mg DAILY ARISTIDES Administration Cholecalciferol 400 unit 03/05/18 09:00 03/05/18 08:15 Vitamin D3 PO 400 unit DAILY ARISTIDES Administration Clonidine 0.1 mg 03/01/18 16:00 03/05/18 17:45 Catapres PO 0.1 mg TID ARISTIDES Administration Clonidine 0.1 mg 03/01/18 14:35 Catapres PO Q4HR PRN Hypertension Docusate Sodium 100 mg 03/02/18 21:00 03/05/18 08:23 Colace PO Not Given BID ARISTIDES Enalaprilat 1.25 mg 02/27/18 21:32 03/04/18 02:55 Vasotec IVP 1.25 mg Q6H PRN Administration Hypertension Fenofibrate 160 mg 03/01/18 09:00 03/05/18 08:15 Lofibra PO 160 mg DAILY ARISTIDES Administration Heparin Sodium (Porcine) 5,000 unit 02/28/18 21:00 03/05/18 08:14 Heparin SQ 5,000 unit Q12HR [facility]STIDES Administration Hydralazine HCl 50 mg 02/28/18 01:30 03/05/18 17:45 Apresoline PO 50 mg TID ARISTIDES Administration Sodium Chloride 1,000 mls @ 100 mls/hr 02/27/18 20:30 03/05/18 16:26 Saline 0.9% IV Not Given .Q10H [facility]STIDES Indapamide 2.5 mg 03/05/18 09:00 03/05/18 08:15 Lozol PO 2.5 mg DAILY ARISTIDES Administration Insulin Aspart 0 unit 02/28/18 17:30 03/05/18 17:38 Novolog SQ Not Given ACHS [facility] Protocol Levothyroxine Sodium 100 mcg 03/01/18 06:30 03/05/18 05:33 Synthroid PO 100 mcg DAILY@0630 ARISTIDES Administration Lisinopril 20 mg 03/01/18 09:00 03/05/18 08:15 Zestril PO 20 mg DAILY ARI[facility]IDES Administration Loratadine 10 mg 03/01/18 09:00 03/05/18 08:15 Claritin PO 10 mg DAILY ARISTIDES Administration Metoprolol Tartrate 200 mg 02/28/18 11:00 03/05/18 08:14 Lopressor PO 200 mg Q12HR [facility]STID[facility] Administration Morphine Sulfate 4 mg 02/27/18 21:29 03/05/18 17:47 Morphine Sulfate (Inj) IV 4 mg Q4HR PRN Administration Severe Pain Naloxone HCl 0.2 mg 02/27/18 21:29 Narcan IV Q2M PRN Opioid Reversal Ondansetron HCl 4 mg 02/27/18 21:29 Zofran IVP Q8HR PRN Nausea And Vomiting Pantoprazole Sodium 40 mg 03/02/18 07:30 03/05/18 08:15 Protonix PO 40 mg AC-BRKFST ARISTIDES Administration Polyethylene Glycol 17 gm 03/03/18 09:00 03/05/18 08:23 Miralax PO Not Given DAILY ARISTIDES Ropinirole HCl 0.25 mg 02/28/18 21:00 03/04/18 21:25 Requip PO 0.25 mg HS [facility]STIDES Administration Objective - Vital Signs Vital signs: Vital Signs Temp 98.0 F 03/06/18 15:00 Pulse 60 03/06/18 15:00 Resp 18 03/06/18 15:00 BP 159/60 03/06/18 15:00 Pulse Ox 96 03/06/18 15:00 Intake & Output 03/06/18 03/06/18 03/07/18 06:59 18:59 06:59 Weight 69.4 kg Other: Voiding Method Toilet Toilet # Voids 3 1 - Exam General appearance: alert, in no apparent distress Head exam: Present: atraumatic, normocephalic, normal inspection Eye exam: Present: normal appearance, PERRL, EOMI. Absent: scleral icterus, conjunctival injection, periorbital swelling ENT exam: Present: normal exam, mucous membranes moist Neck exam: Present: normal inspection. Absent: tenderness, meningismus, lymphadenopathy Respiratory exam: Decreased breath sounds in bilateral lower lung brown Cardiovascular Exam: Present: regular rate, normal rhythm, normal heart sounds. GI/Abdominal exam: Present: distended, normal bowel sounds. Absent: soft, tenderness, guarding, rebound, rigid Extremities exam: no edema Right Hip exam: Patient is tenderness over the greater trochanter and cannot flex it due to severe pain. Neurological exam: Present: alert, no focal deficits - Labs CBC & Chem 7: 03/05/18 06:21 03/05/18 06:27 Labs: Abnormal Lab Results - Last 24 Hours (Table) 03/06/18 03/06/18 03/06/18 Range/Units 07:01 11:12 16:39 POC Glucose (mg/dL) 121 H 124 H 138 H (75-99) mg/dL 10/17/18 Range/Units 20:13 POC Glucose (mg/dL) 116 H (75-99) mg/dL Assessment and Plan Assessment: ASSESSMENT Right hip pain secondary to avascular necrosis Right femur lytic lesions and patient refused further workup including MRI. Chronic debility Gait dysfunction Type 2 diabetes mellitus Hypertension Hypothyroidism Dementia Hypovolemic hyponatremia Chronic anemia. Etiology unknown. PLAN: Orthopedic surgery and oncology evaluated the patient and signed off as the patient does not want any kind of further testing done. Patient is being managed for pain. She continues to be on IV pain meds. PT OT on board and evaluating the patient. So eventually the plan was to have the patient sent to rehab. groundskeeping maintenance worker on board and working on it. Further recommendations based on the clinical course. Prognosis is poor. Time with Patient: Greater than 30
--- NOTE | 2018-03-07 13:43 | P.DS ---
Providers Date of admission: 02/27/18 21:19 Expected date of discharge: 03/07/18 Attending physician: Patricia Contreras Consults: 02/27/18 21:29 Consult Physician Stat Consulting Provider: Orestes Mims Consult Reason/Comments: AVN R hip Do you want consulting provider notified?: Yes 02/28/18 10:13 Consult Physician Routine Consulting Provider: Satinder Blackwood Consult Reason/Comments: malignancy??? lytic lesion Do you want consulting provider notified?: Yes Primary care physician: Ruddy Suh MD Hospital Course: Discharge diagnosis Right hip pain secondary to avascular necrosis Right femur lytic lesions and patient refused further workup including MRI. Chronic debility Gait dysfunction Type 2 diabetes mellitus Hypertension Hypothyroidism Dementia Hypovolemic hyponatremia Chronic anemia. Etiology unknown. Hospital course Ms. Sofia is a 87-year-old female with a past medical history of hypertension, diabetes, hypothyroidism coming into the hospital with a chief complaint of generalized weakness and tiredness. She states that her right hip pain has been going on for the past couple of years but for the past 1 week it became very severe and debilitating. Patient had an x-ray of the right hip showing possible right femur lytic lesions and also avascular necrosis of the right femoral head. She had a CAT scan of the abdomen showing left-sided hydronephrosis and hydroureter with decreased left renal function and features consistent with chronic bladder obstruction. So oncology and orthopedic surgery has been consulted, as a part of workup for this MRI of the right femur was ordered. But patient could not get the MRI as she could not lay flat for the MRI. On 03/05/2018-patient is lying comfortably in the bed appears to be in no acute distress. Patient states that she has ongoing pain in the right hip and leg. 03/06/2018 Pain is much improved with morphine. Pain medication will be changed to Elma 5 every 4 hourly when necessary for pain. Otherwise patient refused to get MRI and further workup to evaluate for right lower extremity bony lesion. Anticipate discharged to rehab once pain is controlled with oral medications. 03/07/2018 Patient denied any complaints of chest pain or shortness of breath. Pain is well controlled with Elma every 4-6 hours area did no fever no chills. No acute overnight issues. Patient is stable to be discharged to extended care facility. PLAN: Orthopedic surgery and oncology evaluated the patient and signed off as the patient does not want any kind of further testing done. Patient is being managed for pain. Patient was on IV morphine. Changed to Elma 5. Q4-6hrs. PT OT on board and evaluating the patient. So eventually the plan was to have the patient sent to rehab. marshmallow machine worker on board. Further recommendations based on the clinical course. Prognosis is poor. Patient has been available at rehab today. Patient is being discharged in stable condition. Physical examination General appearance: alert, in no apparent distress Head exam: Present: atraumatic, normocephalic, normal inspection Eye exam: Present: normal appearance, PERRL, EOMI. Absent: scleral icterus, conjunctival injection, periorbital swelling ENT exam: Present: normal exam, mucous membranes moist Neck exam: Present: normal inspection. Absent: tenderness, meningismus, lymphadenopathy Respiratory exam: Decreased breath sounds in bilateral lower lung brown Cardiovascular Exam: Present: regular rate, normal rhythm, normal heart sounds. GI/Abdominal exam: Present: distended, normal bowel sounds. Absent: soft, tenderness, guarding, rebound, rigid Extremities exam: no edema Right Hip exam: Patient is tenderness over the greater trochanter and cannot flex it due to severe pain. Neurological exam: Present: alert, no focal deficits Vital Signs - 8 hr 03/07/18 07:00 Temperature 97.5 F L Pulse Rate [ 63 Pulse Oximetery ] Respiratory 12 Rate Blood Pressure 178/63 [Right Arm] O2 Sat by Pulse 94 L Oximetry Total time taken greater than 35 minutes including 18 minutes for counseling and coordination of care. Patient Condition at Discharge: Stable Plan - Discharge Summary Discharge Rx Participant: No New Discharge Prescriptions: New HYDROcodone/APAP 5-325MG [Elma 5-325] 1 each PO Q6HR PRN 3 Days #12 tab PRN Reason: Moderate Pain Continue Metoprolol Tartrate [Lopressor] 200 mg PO Q12H Loratadine 10 mg PO DAILY Fenofibrate Nanocrystallized [Fenofibrate] 145 mg PO DAILY Vitamin D3(Uknown Dose) 1 tab PO DAILY Lisinopril [Zestril] 20 mg PO DAILY Felodipine [Felodipine ER] 10 mg PO DAILY Docusate [Colace] 100 mg PO DAILY Calcium Citrate 250 mg PO DAILY Aspirin EC [Ecotrin Low Dose] 81 mg PO DAILY rOPINIRole HCL [Requip] 0.25 mg PO HS Vitamin B Complex 1 cap PO DAILY Fish Oil/Dha/Epa [Fish Oil 1,200 mg Fish Oil] 1 cap PO DAILY Ascorbic Acid [Vitamin C] 500 mg PO DAILY Acetaminophen [Tylenol] 650 mg PO Q6H PRN PRN Reason: Pain metFORMIN HCL [Glucophage] 500 mg PO AC-SUPPER hydrALAZINE HCL [Apresoline] 50 mg PO TID Indapamide [Lozol] 2.5 mg PO DAILY Levothyroxine Sodium 100 mcg PO DAILY Discharge Medication List Acetaminophen [Tylenol] 650 mg PO Q6H PRN 02/27/18 [History] Ascorbic Acid [Vitamin C] 500 mg PO DAILY 02/27/18 [History] Aspirin EC [Ecotrin Low Dose] 81 mg PO DAILY 02/27/18 [History] Calcium Citrate 250 mg PO DAILY 02/27/18 [History] Docusate [Colace] 100 mg PO DAILY 02/27/18 [History] Felodipine [Felodipine ER] 10 mg PO DAILY 02/27/18 [History] Fenofibrate Nanocrystallized [Fenofibrate] 145 mg PO DAILY 02/27/18 [History] Fish Oil/Dha/Epa [Fish Oil 1,200 mg Fish Oil] 1 cap PO DAILY 02/27/18 [History] Indapamide [Lozol] 2.5 mg PO DAILY 02/27/18 [History] Levothyroxine Sodium 100 mcg PO DAILY 02/27/18 [History] Lisinopril [Zestril] 20 mg PO DAILY 02/27/18 [History] Loratadine 10 mg PO DAILY 02/27/18 [History] Metoprolol Tartrate [Lopressor] 200 mg PO Q12H 02/27/18 [History] Vitamin B Complex 1 cap PO DAILY 02/27/18 [History] Vitamin D3(Uknown Dose) 1 tab PO DAILY 02/27/18 [History] hydrALAZINE HCL [Apresoline] 50 mg PO TID 02/27/18 [History] metFORMIN HCL [Glucophage] 500 mg PO AC-SUPPER 02/27/18 [History] rOPINIRole HCL [Requip] 0.25 mg PO HS 02/27/18 [History] HYDROcodone/APAP 5-325MG [Elma 5-325] 1 each PO Q6HR PRN 3 Days #12 tab [Rx] Follow up Appointment(s)/Referral(s): Ruddy Suh MD [Primary Care Provider] - 1-2 days Discharge Disposition: TRANSFER TO SNF/ECF
[2018-03-07 15:52] VITALS: BP 195/68; TEMP 98.2
== END 2018-03-07 16:15 | DRG 554 ==
LOC: EC 16:34 → 3SUR 21:19 → 4SSUR 03-03 07:13
PROVIDERS: ADMIT Internal Medicine; ATTEND Internal Medicine
DX: M89.751 Major osseous defect, right pelvic region and thigh (principal); M90.551 Osteonecrosis in diseases classified elsewhere, right thigh; R18.8 Other ascites; N13.30 Unspecified hydronephrosis; E87.1 Hypo-osmolality and hyponatremia; D64.9 Anemia, unspecified; E11.9 Type 2 diabetes mellitus without complications; F03.90 Unspecified dementia, unspecified severity, without behavioral disturbance, psychotic disturbance, mood disturbance, and anxiety; M16.11 Unilateral primary osteoarthritis, right hip; Z66 Do not resuscitate; I10 Essential (primary) hypertension; N99.3 Prolapse of vaginal vault after hysterectomy; N32.0 Bladder-neck obstruction; R33.9 Retention of urine, unspecified; E03.9 Hypothyroidism, unspecified; Z79.84 Long term (current) use of oral hypoglycemic drugs; Z79.82 Long term (current) use of aspirin; Z79.890 Hormone replacement therapy; Z79.899 Other long term (current) drug therapy; Z90.710 Acquired absence of both cervix and uterus; Z90.49 Acquired absence of other specified parts of digestive tract; Z88.6 Allergy status to analgesic agent; Z88.5 Allergy status to narcotic agent; Z88.8 Allergy status to other drugs, medicaments and biological substances; Z82.49 Family history of ischemic heart disease and other diseases of the circulatory system; Z82.3 Family history of stroke
CPT/HCPCS: 36415; 51702; 71046; 73502; 74177; 80048; 80053; 81001; 82550; 82553; 83036; 83735; 83880; 84484; 85025; 85610; 85730; 93005; 96361; 96374; 96375; 96376; 99285